=== PATIENT | female | born 1945 | race Caucasian/White ===

== ENCOUNTER 2017-06-01 15:50 | Inpatient (IN) | payer MEDICARE ==
--- NOTE | 2017-06-01 16:51 | RAD ---
CHEST ONE VIEW: 06/01/17 HISTORY: Chest and back pain. COMPARISON: 07/14/16. FINDINGS: The cardiac silhouette and pulmonary vasculature are unremarkable. Mediastinum is midline with aortic calcification. There is no lobar consolidation, or evidence of pneumothorax. IMPRESSION: 1. Atherosclerosis. 2. No active cardiopulmonary abnormalities are otherwise demonstrated. POS: [facility]
[2017-06-01 17:25] LABS: #Basophils 0.1 thou/uL (0.0-0.2); #Eosinphils 0.4 thou/uL (0.0-0.7); #Lymphocytes 1.6 thou/uL (1.20-3.40); #Monocytes 0.7 thou/uL (0.11-0.59); %Basophils 0.5 % (0.0-1.0); %Eosinophils 3.1 % (0.0-10.0); %Lymphocytes 13.5 % (21.0-51.0); %Monocytes 5.9 % (0.0-10.0); %Neutrophils 77.1 % (42.0-75.0); Hemoglobin 14.1 g/dL (12.0-16.0); Mean Corpuscular HGB CONC 32.3 g/dL (32.0-36.0); Mean Corpuscular Hemoglobin 29.9 pg (27.0-31.0); Mean Corpuscular Volume 92.7 fl (81.0-99.0); Mean Platelet Volume 6.2 fL (7.4-10.4); Platelet Count 493 thou/uL (130-400); RBC Distribution Width 12.6 % (11.5-14.5); Red Blood Cell (RBC) Count 4.71 mill/uL (4.20-5.40); White Blood Cell (WBC) Count 11.6 thou/uL (4.8-10.8)
[2017-06-01 17:45] LABS: ALT (SGPT) 14 U/L (8-55); AST (SGOT) 16 U/L (5-34); Albumin 3.5 g/dL (3.4-4.8); Alkaline Phosphatase 83 U/L (40-150); Anion Gap 14 mmol/L (10-20); BUN (Urea Nitrogen) 33 mg/dL (9.8-20.1); Bilirubin, Total 0.4 mg/dL (0.2-1.2); CK (CPK) 23 U/L (29-168); Calc. Creatinine Clearance 0 mL/min (70-130); Calcium 11.1 mg/dL (7.8-10.44); Carbon Dioxide 23 mmol/L (23-31); Chloride 103 mmol/L (98-107); Estimated GFR-MDRD 17; Globulin 3.7 g/dL (2.4-3.5); Glucose 99 mg/dL (83-110); Lipase 55 U/L (8-78); Potassium 3.1 mmol/L (3.5-5.1); Protein, Total 7.2 g/dL (6.0-8.3); Sodium 137 mmol/L (136-145)
[2017-06-01 17:47] LABS: CKMB 1.2 ng/mL (0-6.6); Troponin I 0.021 ng/mL (< 0.028)
[2017-06-01] MEDS ORDERED: Nitroglycerin 0.4 MG TAB (25 Tab Bottle) ONE (17:58)
[2017-06-01] MEDS ORDERED: Nitroglycerin 2% Ointment 1 INCH/1 GM Packet ONE (18:14)
[2017-06-01] MEDS ORDERED: Ondansetron ODT 4 MG TAB SL PRN (20:09)
[2017-06-01] MEDS ORDERED: Ondansetron HCl/PF 4 MG/2 ML Vial IVP PRN (20:09)
[2017-06-01] MEDS ORDERED: Acetaminophen 325 MG TAB PO PRN (20:09)
[2017-06-01] MEDS ORDERED: Sodium Chloride 0.9% 1,000 ML IV SCH (20:09)
[2017-06-01 20:47] LABS: Troponin I 0.025 ng/mL (< 0.028)
[2017-06-01] MEDS: Sodium Chloride 0.9% 1,000 ML IV SCH (22:40)
[2017-06-01] MEDS ORDERED: Donepezil HCl 10 MG TAB PO SCH (23:45)
[2017-06-01] MEDS ORDERED: Simvastatin 20 MG TAB PO SCH (23:45)
[2017-06-01] MEDS ORDERED: Sucralfate 1 GM TAB PO SCH (23:45)
[2017-06-01] MEDS ORDERED: Amlodipine 10 MG TAB PO SCH (23:45)
[2017-06-01] MEDS ORDERED: Pancrelipase DR 12000 1 CAP PO SCH (23:45)
[2017-06-01 23:51] LABS: Troponin I 0.023 ng/mL (< 0.028)
--- NOTE | 2017-06-01 23:59 | HP ---
CHIEF COMPLAINT: Chest pain. HISTORY OF PRESENT ILLNESS: She is a 72-year-old woman with a history of hypertension, CAD. She came in because having some chest pain for last few days. She also has some back pain started few days ago and her back pain radiated to the midsternal chest pain. Pain was constant, so because of persistent pain, she decided to come to the ER. She denies any nausea, vomiting , any diarrhea. Her pain is more with activity when she moves, when she sits, when she walks, pain increased in severity and duration. Patient denies any injury. PAST MEDICAL HISTORY: History of coronary artery disease, stent, type 1; hyperlipidemia; hypertension. PAST SURGICAL HISTORY: Cholecystectomy, hysterectomy. SOCIAL HISTORY: Former tobacco user, smokes cigarette quit more than 10 years ago. Denies alcohol and drug use. Lives with her spouse. REVIEW OF SYSTEMS: She denies any chills, any fever. Eyes: Denies any eye discharge, vision changes. ENT: Denies any rhinorrhea or sore throat. Cardiovascular: She does have chest pain, left side radiated to the back and the front and no dyspnea on exertion. No syncopal episode, no palpitations. Respiratory: She does some short of breath. No cough. No wheezing. Gastrointestinal: No nausea, no diarrhea, no vomiting, no abdominal pain, no melena. Musculoskeletal: She does have some back pain. Skin: No rash. Neurologic: She denies any passing out any headache, any change in mental status. FAMILY HISTORY: Noncontributory. PHYSICAL EXAMINATION: GENERAL: Elderly woman lying in the bed, not in distress. HEENT: Atraumatic, normocephalic. Pupils are round and reactive. Extraocular muscle movements are intact. Ear, nose, throat normal. Tongue mucosa moist. NECK: Supple. LUNGS: Chest is normal risk of breathing, no added sound. She has mild chest wall tenderness in the mid chest. CV: S1, S2 audible. No S3, S4. ABDOMEN: Soft. No organomegaly. EXTREMITIES: No pedal edema. LABORATORY DATA: Chest x-ray shows no active pulmonary disease. Troponin 0.021. Lipase 55. Sodium 137, potassium 3.1, chloride 103, carbon dioxide 23, anion gap 14, BUN 33, creatinine 0.77, calcium 11.1. Bilirubin 0.4, protein 7.2 , albumin 3.5. Hemoglobin 14.5, WBC 11.6, platelets 493, neutrophils 6.2, MCV 92. ASSESSMENT AND PLAN: 1. Chest pain, rule out myocardial infarction. 2. Acute kidney injury secondary to hypovolemia. 3. Hypercalcemia. PLAN: 1. Chest pain with history of risk factor, we continue serial troponin, EKGs, and echocardiogram. 2. Acute kidney injury with hypovolemia with continued IV fluid, normal saline 125 mL hour and follow BMP in the morning. 3. Hypercalcemia secondary to the hypovolemia. IV fluid and monitor. Rule out underlying malignancy . 4 DVT Prophylaxis Heparin MTDD
[2017-06-02] MEDS: Acetaminophen 325 MG TAB PO PRN ×3 (00:12→15:16)
[2017-06-02] MEDS ORDERED: Nitroglycerin 2% Ointment 1 INCH/1 GM Packet TOP SCH (02:00)
[2017-06-02 03:18] VITALS: BMI 29.5
[2017-06-02] MEDS: Sodium Chloride 0.9% 1,000 ML IV SCH ×3 (05:10→13:37)
[2017-06-02] MEDS: Levothyroxine Sodium 125 MCG TAB PO SCH (05:10)
[2017-06-02 05:25] LABS: Anion Gap 12 mmol/L (10-20); BUN (Urea Nitrogen) 28 mg/dL (9.8-20.1); Calc. Creatinine Clearance 25 mL/min (70-130); Calcium 10.2 mg/dL (7.8-10.44); Carbon Dioxide 22 mmol/L (23-31); Chloride 109 mmol/L (98-107); Estimated GFR-MDRD 20; Glucose 79 mg/dL (83-110); Sodium 140 mmol/L (136-145)
[2017-06-02 05:28] LABS: Potassium 2.9 mmol/L (3.5-5.1)
[2017-06-02] MEDS ORDERED: Potassium Chloride 20 MEQ TAB PO SCH (06:00)
[2017-06-02] MEDS: Pancrelipase DR 12000 1 CAP PO SCH ×4 (08:46→20:47)
[2017-06-02] MEDS: Potassium Chloride 20 MEQ TAB PO SCH ×2 (08:47→20:48)
[2017-06-02] MEDS: Sucralfate 1 GM TAB PO SCH ×4 (08:47→20:48)
[2017-06-02] MEDS ORDERED: Potassium Chloride 40 MEQ in Sodium Chloride 0.9% 500 ML IVPB SCH (10:00)
--- NOTE | 2017-06-02 10:21 | ULT ---
RENAL ULTRASOUND: Indication: History of renal failure. FINDINGS: There is moderate to prominent right sided hydronephrosis. There is mild right renal cortical thinnin g measuring up to 1.4 cm. Tiny bilateral ureteral jets are demonstrated at the level of the bladder. There is a small suspected bladder stone seen within the posterior aspect of the bladder. No left sided hydronephrosis is evident. The left renal cortical thickness is 1.6 cm. The right kidney measures 11.8 x 7.9 x 7.2 cm. The left kidney measures 10.6 x 5.9 x 5.2 cm. The pre void bladder volume was 53.8 cc. IMPRESSION: 1. Moderate to prominent right sided hydronephrosis. CT of the abdomen and pelvis without contrast ma y be helpful for further evaluation as to the cause of this obstructive physiology within the right r enal collecting system. 2. Suspected bladder stone within the bladder. POS: [facility]
--- NOTE | 2017-06-02 12:31 | PDOC.PN ---
- Subjective Encounter Start Date: 06/02/17 Encounter Start Time: 12:30 Subjective: Pt admitted with SARAH, Hypokalemia, Hypercalcemia -: Pt c/o generalized weakness, Adequate urine output - Objective Vital Signs & Weight: Vital Signs (12 hours) Temp Pulse Resp BP BP Pulse Ox 06/02/17 11:29 97.4 F L 66 16 164/74 H 96 06/02/17 07:50 97.6 F 62 18 06/02/17 07:22 97.2 F L 64 16 141/66 H 95 06/02/17 04:31 97.6 F 62 18 06/02/17 03:08 97.6 F 62 18 142/74 H 95 Weight Weight 166 lb 8 oz I&O: 06/01/17 06/02/17 06/03/17 06:59 06:59 06:59 Intake Total 1158 240 Balance 1158 240 Result Diagrams: 06/01/17 17:13 06/02/17 04:30 Phys Exam - Physical Examination Neck: no nodes, no JVD, supple, full ROM Respiratory: no wheezing, no rales, no rhonchi, wheezing present, clear to auscultation bilateral Cardiovascular: RRR, no significant murmur, no rub, gallop, irregular Gastrointestinal: soft, non-tender, no distention, positive bowel sounds Musculoskeletal: no edema, pulses present Tenderness upper back, Thoracic area Neurological: non-focal, normal sensation, moves all 4 limbs Lymphatic: no nodes Psychiatric: normal affect, A&O x 3 Skin: no rash, normal turgor, cap refill <2 seconds Dx/Plan (1) SARAH (acute kidney injury) Code(s): N17.9 - ACUTE KIDNEY FAILURE, UNSPECIFIED Status: Acute (2) Hypokalemia Code(s): E87.6 - HYPOKALEMIA Status: Acute (3) Hypercalcemia Code(s): E83.52 - HYPERCALCEMIA Status: Acute - Plan PT/OT 1) Continue IV Fluid -: 2 SARAH sec to Hypovolemia, Avoid Nephrotoxic agent, Renal USG and Nephrology -: 3) Hypokalemia, will replace * . Review of Systems - Review of Systems Constitutional: negative: fever, chills, sweats, weakness, malaise, other Eyes: negative: Pain, Vision Change, Conjunctivae Inflammation, Eyelid Inflammation, Redness, Other ENT: negative: Ear Pain, Ear Discharge, Nose Pain, Nose Discharge, Nose Congestion, Mouth Pain, Mouth Swelling, Throat Pain, Throat Swelling, Other Respiratory: negative: Cough, Dry, Shortness of Breath, Hemoptysis, SOB with Excertion, Pleuritic Pain, Sputum, Wheezing Cardiovascular: negative: chest pain, palpitations, orthopnea, paroxysmal nocturnal dyspnea, edema, light headedness, other Gastrointestinal: Nausea. negative: Vomiting, Abdominal Pain, Diarrhea, Constipation, Melena, Hematochezia, Other Musculoskeletal: Back Pain Neurological: Weakness. negative: Numbness, Incoordination, Change in Speech, Confusion, Seizures, Other - Medications/Allergies Allergies/Adverse Reactions: Allergies Allergy/AdvReac Type Severity Reaction Status Date / Time No Known Drug Allergies Allergy Verified 07/14/16 15:44 Medications: Current Medications Acetaminophen (Tylenol) 650 mg PO Q4H PRN PRN Reason: Headache/Fever or Pain Last Admin: 06/02/17 05:41 Dose: 650 mg Alprazolam (Xanax) 0.25 mg PO BIDPRN PRN PRN Reason: Anxiety Amlodipine Besylate (Norvasc) 10 mg PO HS AGUSTÍN Lipase/Protease/Amylase ([place] [id number]) 2 cap PO QID-WM [facility] Last Admin: 06/02/17 12:22 Dose: 2 cap Donepezil HCl (Aricept) 10 mg PO HS AGUSTÍN Sodium Chloride (Normal Saline 0.9%) 1,000 mls @ 150 mls/hr IV .Q6H40M [facility] Last Admin: 06/02/17 05:10 Dose: 1,000 mls Levothyroxine Sodium (Synthroid) 125 mcg PO 0600 [facility] Last Admin: 06/02/17 05:10 Dose: 125 mcg Memantine (Namenda) 10 mg PO BID [facility] Last Admin: 06/02/17 08:47 Dose: 10 mg Pantoprazole Sodium (Protonix) 40 mg PO HS AGUSTÍN Potassium Chloride (K-Dur) 40 meq PO BID [facility] Last Admin: 06/02/17 08:47 Dose: 40 meq Sertraline HCl (Zoloft) 100 mg PO HS AGUSTÍN Simvastatin (Zocor) 20 mg PO HS [facility] Sodium Chloride (Flush - Normal Saline) 10 ml IVF Q12HR [facility] Last Admin: 06/02/17 08:47 Dose: Not Given Sodium Chloride (Flush - Normal Saline) 10 ml IVF PRN PRN PRN Reason: Saline Flush Sucralfate (Carafate) 1 gm PO QID-[facility] Last Admin: 06/02/17 12:22 Dose: 1 gm
[2017-06-02 13:43] LABS: Anion Gap 11 mmol/L (10-20); BUN (Urea Nitrogen) 24 mg/dL (9.8-20.1); Calc. Creatinine Clearance 26 mL/min (70-130); Calcium 10.4 mg/dL (7.8-10.44); Carbon Dioxide 23 mmol/L (23-31); Chloride 110 mmol/L (98-107); Estimated GFR-MDRD 21; Glucose 91 mg/dL (83-110); Potassium 3.5 mmol/L (3.5-5.1); Sodium 140 mmol/L (136-145)
[2017-06-02] MEDS ORDERED: Potassium Chloride 10 MEQ TAB PO SCH (17:00)
[2017-06-02 18:48] LABS: Bilirubin Negative (Negative); Blood, Urine Negative (Negative); Clarity CLEAR (Clear); Glucose, Urine (Dipstick) Negative (Negative); Leukocyte Trace (Negative); Nitrite Negative (Negative); Protein, Urine (Dipstick) Trace mg/dL (Neg-Trace); Specific Gravity, Urine 1.014 (1.002-1.036); Urobilinogen 0.2 mg/dL (0.2-1.0); pH, Urine 6.5 (5.0-9.0)
[2017-06-02 18:51] LABS: Bacteria/HPF None Seen HPF (None Seen); Hyaline Casts/LPF 0-3 HYALINE CAST LPF (0-3 Hyaline); RBC/HPF 0-3 HPF (0-3); Squamous Epithelial 0-3 HPF (0-3)
[2017-06-02 18:51] LABS: Troponin I 0.017 ng/mL (< 0.028)
--- NOTE | 2017-06-02 19:05 | CT ---
CT OF ABDOMEN AND PELVIS PERFORMED WITHOUT CONTRAST ENHANCEMENT: 06/02/17 HISTORY: Right flank pain. The lung bases are clear. The liver, spleen, and pancreas regions appear unremarkable. gallbladder appears to have been removed . Right and left adrenal glands are normal. There are bilateral renal calculi. There is moderate right sided hydronephrosis and hydroureter. This was related to several stones. One is located at the pelvi c brim. It measures 7 to 8 mm and then there are two additional calculi which are at the right ureter ovesical junction, both of which measure approximately 6 mm. On the left side, there is some mild left hydronephrosis and hydroureter. Patient appears to have pas sed the stone. There is a poor 5 mm calculus which appears to on the left side of the bladder. It mario ears to have been expelled from the left ureter at this level. There is no significant adenopathy or mass. No pelvic lymphadenopathy seen. There are arthritic carvajal es of the spine. IMPRESSION: Bilateral renal calculi with moderate right sided hydronephrosis and hydroureter related to three ure teral calculi as discussed above. In addition, the patient appears to have expelled a left sided uret eral calculus into the bladder. The findings discussed with Dr. Joel. POS: [facility]
[2017-06-02] MEDS: Simvastatin 20 MG TAB PO SCH (20:48)
[2017-06-02] MEDS: Donepezil HCl 10 MG TAB PO SCH (20:48)
[2017-06-02] MEDS: Amlodipine 10 MG TAB PO SCH (20:48)
[2017-06-03] MEDS: ALPRAZolam 0.25 MG TAB PO PRN (00:19)
[2017-06-03] MEDS: Acetaminophen 325 MG TAB PO PRN ×2 (00:19→12:35)
[2017-06-03] MEDS: Sodium Chloride 0.9% 1,000 ML IV SCH ×4 (00:21→20:05)
--- NOTE | 2017-06-03 00:59 | CON ---
DATE OF CONSULTATION: 06/02/2017 PRIMARY CARE PHYSICIAN: Dr. Yung. REFERRING: Hospitalist. REASON FOR CONSULTATION: Bladder stone. HISTORY OF PRESENT ILLNESS: Ms. Hsu is a 72-year-old pleasant female with history of dementia, coronary artery disease, morbid obesity, chronic diarrhea followed by GI, who presents for evaluation of right back flank tenderness. She states that this pain has been present for the last week. Most of the discomfort is in the mid upper back and right flank region. She denies history of nausea, vomiting, fever. She does have history of chronic diarrhea followed by Dr. 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 She denies prior history of kidney stones. Denies dysuria, gross hematuria, recurrent UTI. Family at bedside, lives with her . The patient states that she has had no issues with voiding. She has been voiding with good adequate amount of urine since her hospital stay. Due to acute renal insufficiency, renal ultrasound was obtained, which demonstrating moderate right hydronephrosis with possible bladder stone. I did review her prior imaging and medical records from our primary rn home care. She does have imaging at [facility] performed on 04/12/2017 due to abdominal pain. This was performed by GI. I did review the CT myself, and I do appreciate likely a right mid ureteral calculi [address] scan with no hydronephrosis. She has multiple right renal calculi with left lower pole renal stone as well. She denies prior surgical evaluation from urologic perspective. 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 Billingsley) in 2000, breast biopsy in 2011, bilateral tubal ligation in 1978, right knee replacement by Dr. Rao in 2013, EGD and bladder biopsy by Dr. Dixon in 12/2013, laparoscopic cholecystectomy in 2003, right hemicolectomy by Dr. Griffin in 07/16/2016 with cardiac clearance in chart by Dr. Billingsley. PAST MEDICAL HISTORY: Hypertension, hypercholesterolemia, coronary artery disease, hypothyroidism, dementia, chronic anxiety, depression, obesity, GERD, menopausal. FAMILY HISTORY: Positive for Alzheimer's, history of COPD, NE. She is G2, P2 with at bedside. SOCIAL HISTORY: History of tobacco abuse, quit in 1999; former smoker. ALLERGIES: No known drug allergies. CURRENT MEDICATIONS: Include Tylenol, amlodipine, Aricept, levothyroxine, memantine, nitroglycerin p.r.n., pancrelipase, Zofran, simvastatin, sucralfate. PHYSICAL EXAMINATION: VITAL SIGNS: Stable, 97.5, 70, 18, 97, 160/76. GENERAL: The patient is in no acute distress, alert and oriented x3. is at bedside, who provides further subjective history as well. HEENT: Unremarkable. LUNGS: Clear. ABDOMEN: Subjective discomfort, at this time is not grossly appreciated. No CVA tenderness appreciated. Abdomen is obese, protuberant. Midline periumbilical incision noted with laparoscopic cholecystectomy incision with no hernia. No suprapubic tenderness. GENITOURINARY: Demonstrates severe atrophic vaginitis, excoriation at the external genitalia noted. There is no significant pelvic prolapse. Urethral meatus is somewhat retracted cephalad due to severe atrophy. EXTREMITIES: No cyanosis, clubbing or edema. PERTINENT LABORATORY AND IMAGING: White count is 11.6, hemoglobin 14, platelets 493. Baseline creatinine is anywhere from 0.8-0.9. Creatinine on 11/2016 is 1.3 near the time of her CT scan with bilateral renal calculi. Current admission with creatinine is 2.7, currently is 2.3, BUN 24, potassium is within normal limits. Troponin minimally elevated to 0.03 per hospitalists unlikely due to cardiac event. Chest x-ray on 06/01/[address] of the abdomen and pelvis with IV and oral contrast in 04/12/2017 at [facility]. No bowel masses appreciated on this CAT scan. Large bilateral nonobstructing renal calculi atherosclerosis. Per my review, the right kidney has multiple stones: Right upper pole 1.4 cm, right mid pole 6 mm, right lower pole 8 mm triangular in shape. Per my review, likely a right proximal ureteral calculi 5 mm at the L3-L4 level, left 8 mm lower pole stone. Renal ultrasound dated 06/02/2017, moderate right hydronephrosis, small stones in the posterior aspect of the bladder. Mild renal cortical thinning. No left hydronephrosis is appreciated. Bilateral ureteral jets present. CT of the abdomen and pelvis on 06/02/2017, I did review this with Dr. Montes. There are multiple right ureteral calculi: Right lower pole 1.3 cm stone at the S2 /3 ureter just below the bifurcation of the iliac, there is a 1.2 cm stone, right distal ureteral stones x2 just proximal to the UVJ 5 mm, 5 mm, respectively. Likely small bladder stone 5 mm in the bladder, left lower pole 1 cm stone. There is mild prominence of the left ureter, likely consistent with recent passage of left ureteral calculi. Hounsfield unit of stone is 521. IMPRESSION AND PLAN: Ms. Hsu is a 72-year-old female with past medical history of: 1. Chronic diarrhea. 2. Status post right hemicolectomy, pathology negative. 3. Morbid obesity. 4. History of dementia. 5. Coronary artery disease status post PTCA in 2000, presents with urologic issues of hydronephrosis secondary to multiple ureteral calculi dimensions as above. There is no urinalysis culture obtained. As such , we will proceed with cystoscopy, retrograde, right ureteral stent. There is a possibility that the patient may require right percutaneous nephrostomy tube if I am unable to proceed with ureteral stent placement. As she has mild prominence of the left ureter likely due to spontaneous passage of the left ureteral calculi, left retrograde pyelogram will be performed as well. The patient informed regarding risks and complications and indications for the procedure. Desires to proceed. Due to her body habitus, straight cath UA and C &S will be obtained by nursing staff. We will initiate Levaquin subsequently. We will double cover oncall to OR as urine culture is not finalized. I informed the patient that she will require multiple surgical interventions for staged ureteroscopy, laser lithotripsy due to multiple urolithiasis. BLANQUITAD
[2017-06-03 04:35] LABS: #Eosinphils 0.4 thou/uL (0.0-0.7); #Lymphocytes 1.8 thou/uL (1.20-3.40); #Monocytes 0.8 thou/uL (0.11-0.59); #Neutrophils 7.4 thou/uL (1.40-6.50); %Basophils 0.4 % (0.0-1.0); %Eosinophils 3.8 % (0.0-10.0); %Lymphocytes 17.2 % (21.0-51.0); %Monocytes 7.7 % (0.0-10.0); %Neutrophils 70.9 % (42.0-75.0); Hemoglobin 12.3 g/dL (12.0-16.0); Mean Corpuscular HGB CONC 32.4 g/dL (32.0-36.0); Mean Corpuscular Volume 92.7 fl (81.0-99.0); Mean Platelet Volume 6.4 fL (7.4-10.4); Platelet Count 381 thou/uL (130-400); RBC Distribution Width 12.6 % (11.5-14.5); Red Blood Cell (RBC) Count 4.09 mill/uL (4.20-5.40); White Blood Cell (WBC) Count 10.4 thou/uL (4.8-10.8)
[2017-06-03 04:38] LABS: INR-International Normal Ratio 1.2; PTT 35.5 SEC (22.9-36.1); Prothrombin Time 15.6 SEC (12.0-14.7)
[2017-06-03 04:41] LABS: Anion Gap 10 mmol/L (10-20); BUN (Urea Nitrogen) 20 mg/dL (9.8-20.1); Calc. Creatinine Clearance 29 mL/min (70-130); Calcium 10.1 mg/dL (7.8-10.44); Carbon Dioxide 20 mmol/L (23-31); Chloride 113 mmol/L (98-107); Estimated GFR-MDRD 23; Glucose 84 mg/dL (83-110); Sodium 139 mmol/L (136-145)
[2017-06-03] MEDS: Levothyroxine Sodium 125 MCG TAB PO SCH (04:42)
--- NOTE | 2017-06-03 04:53 | CON ---
DATE OF CONSULTATION: 06/02/2017 PRIMARY PREPRESS SPECIALIST: Dr. Billingsley. HISTORY OF PRESENT ILLNESS: Ms. Hsu is a 72-year-old woman. She came to the hospital complainin g of chest pain. The chest pain is predominantly across her upper back and it hurts worse when she t wists or turns or lays a certain way. She also has some chest pain in the front part of her chest as well, it is continuous, lasting for hours at a time. The patient has a history of coronary artery disease and had a stent implanted in unknown coronary ar ana by Dr. Billingsley many years ago. The family thinks it is over 5 years ago. The patient also kevin s gallstones and it has been found to have kidney stones and has hydronephrosis. The patient does not smoke or use tobacco products. PAST MEDICAL HISTORY: Coronary artery disease as mentioned above. PAST SURGICAL HISTORY: Indicates she has had a cholecystectomy and hysterectomy. SOCIAL HISTORY: Previous tobacco, quit over 10 years ago. REVIEW OF SYSTEMS: CONSTITUTIONAL: No significant weight gain or loss. VISION: No changes. HEARING: No changes. PULMONARY: No cough or wheezing. GASTROINTESTINAL: No nausea, vomiting or diarrhea. SKIN: No rashes. NEUROLOGIC: No unilateral weakness or numbness. PSYCHIATRIC: No unusual depression or anxiety. She does have back pain. FAMILY HISTORY: Noncontributory. PHYSICAL EXAMINATION: GENERAL: It is a pleasant elderly woman resting comfortably in no distress. VITAL SIGNS: Blood pressure 168/79, pulse 64 regular. HEENT: Eyes: Sclerae nonicteric. Mouth mucous membranes are moist. NECK: Supple, no lymphadenopathy. LUNGS: Clear, no wheezing, rales or rhonchi. CARDIAC: Normal S1, normal S2. There is no murmur, rub or gallop. ABDOMEN: Soft, nontender. EXTREMITIES: No clubbing or cyanosis. No edema. Peripheral pulses are intact. SKIN: Warm and dry. PERTINENT LABORATORY AND X-RAY FINDINGS: Potassium is 3.5, creatinine has gone from 2.42 down to 2.3 1. Estimated GFR is 21. The EKG did not show any acute changes. Troponin levels peak point 0.03. ASSESSMENT: 1. Coronary artery disease with previous stent implantation, unknown vessel many years ago. 2. Kidney stone with hydronephrosis. 3. Stage IV renal failure, probably a lot of it is obstructive, in October of this year, she had normal kidney function. 4. Chest pain, atypical for angina. 5. Slight increased troponin level, probably demand ischemia also had renal insufficiency. PLAN: Stress testing to be done tomorrow unless her large areas of ischemia proceed the surgery, it would be certainly problematic going to go to the r&d lab technician with the renal function like this. In add ition, we would have to certainly delay any type of surgical intervention for quite a while of furthe r stenting was indicated. Hopefully, the patient can proceed expeditiously to the operating room.
--- NOTE | 2017-06-03 06:25 | CON ---
DATE OF CONSULTATION: 06/02/2017 CONSULTING PHYSICIAN: Dr. Mario Israel. REASON FOR CONSULTATION: Acute kidney injury. REASON FOR ADMISSION: Chest pain. HISTORY OF PRESENT ILLNESS: This is a 72-year-old female with a history of hypertension, coronary ar ana disease, hyperlipidemia, came to the hospital with chest pain and was found to have elevated cre atinine. Nephrology is consulted. Patient was also found to have a bladder stone and Urology is rain ng consulted. No fever or chills. Patient is mainly feeling lower chest and upper abdominal pain an d very severe pain, no nausea, vomiting, no dysuria, no gross hematuria reported. PAST MEDICAL HISTORY: Positive for coronary artery disease, hyperlipidemia, hypertension. PAST SURGICAL HISTORY: Cholecystectomy, hysterectomy. HOME MEDICATIONS: Simvastatin, Carafate, sertraline, Protonix, omeprazole, memantine, levothyroxine, donepezil, amlodipine, alprazolam. ALLERGIES: No known drug allergies. SOCIAL HISTORY: Former smoker. No alcohol or illicit drug abuse. FAMILY HISTORY: No history of kidney disease. REVIEW OF SYSTEMS: The following complete review of systems was negative, unless otherwise mentioned in the HPI or below: Constitutional: Weight loss or gain, ability to conduct usual activities. Skin: Rash, itching. Eyes: Double vision, pain. ENT/Mouth: Nose bleeding, neck stiffness, pain, tenderness. Cardiovascular: Palpitations, dyspnea on exertion, orthopnea. Respiratory: Shortness of breath, wheezing, cough, hemoptysis, fever or night sweats. Gastrointestinal: Poor appetite, abdominal pain, heartburn, nausea, vomiting, constipation, or diarr hea. Genitourinary: Urgency, frequency, dysuria, nocturia. Musculoskeletal: Pain, swelling. Neurologic/PSYCHIATRIC: Anxiety, depression. Allergy/Immunologic: Skin rash, bleeding tendency. PHYSICAL EXAMINATION: GENERAL: This is an elderly female in no apparent distress. VITAL SIGNS: Temperature 97, pulse 66, respiratory rate 16, blood pressure 164/74. HEENT: Atraumatic, normocephalic. Oral mucosa is moist. NECK: Supple. CARDIOVASCULAR: S1, S2 heard. Rate and rhythm regular. RESPIRATORY: Clear to auscultation. MUSCULOSKELETAL: 1+ edema. DERMATOLOGIC: No skin rash. NEUROLOGIC: Alert, awake. PSYCHIATRIC: Mood and affect normal. LABORATORY DATA: Hemoglobin is 14.1. Potassium is 3.5, BUN is 24, creatinine is 2.3. Renal ultraso und with moderate prominent right-sided hydronephrosis with a suspected bladder stone within the blad faustino. ASSESSMENT AND PLAN: 1. Acute kidney injury most likely from partial hydronephrosis and possible bladder stone. I agree with Urology evaluation 2. Hypokalemia, replace and monitor. 3. Acidosis, mild. 4. Hypertension, stable. 5. Bladder mass. Follow up with Urology. 6. Continue hydration as tolerated. Follow up with Urology. Thank you for the consultation. Avoid nephrotoxins.
--- NOTE | 2017-06-03 07:51 | PRG ---
DATE OF SERVICE: 06/03/2017 SUBJECTIVE: patient sleeping, resting comfortably, easily arousable, at bedside. She denies chest pain, shortness of breath. PHYSICAL EXAMINATION: VITAL SIGNS: Stable, afebrile this morning. ABDOMEN: Soft, obese, protuberant, no gross CVA tenderness is appreciated. GENITOURINARY: Urine output is approximately 2 liters. PERTINENT LABORATORY DATA: White count 10, hemoglobin 12, platelet 381. INR, PTT is grossly unremarkable. Creatinine is 2.1. Admitting creatinine is 2.7. Troponin this morning is 0.017 within normal limits. Patient's previous cardiac clearance prior to hemicolectomy in chart. reviewed her clinical course with database management system specialist, Dr. Forbes. She has normal LV function on an echocardiogram dated 06/2016. ASSESSMENT AND PLAN: Discussed the patient's clinical indications for ureteral stent due to 3 large obstructing right ureteral stone with acute renal insufficiency. I did obtain verbal clearance from Dr. Forbes to proceed with stent due to high-grade obstructive uropathy and renal insufficiency. She will require formal cardiac clearance for further elective surgical intervention. As she has multiple bilateral urolithiasis, this will require multiple staged intervention given size, location, multiplicity. Patient and informed regarding risks /complications and indications. They desired to proceed with ureteral stent this morning. BIJAL
[2017-06-03] MEDS ORDERED: cefTRIAXone\\ROCEPHIN 2 GM in Sodium Chloride 0.9% 100 ML IVPB ONE (08:00)
[2017-06-03] MEDS ORDERED: Fentanyl 100 MCG/2 ML VIAL ONE ×2 (08:43→10:34)
--- NOTE | 2017-06-03 09:02 | RAD ---
HISTORY: A 72-year-old female for preoperative evaluation. History of bilateral renal calculi. COMPARISON: CT from 06/02/2017. FINDINGS: Multiple bilateral renal calculi. Postop surgical changes involving the bowel and the right lateral abdomen. Two large right distal ureteral calculi, stable from prior CT. IMPRESSION: Stable bilateral renal and two distal right ureteral calculi. POS: [facility]
[2017-06-03] MEDS ORDERED: Iothalamate Meglumine 60% 50 ML VIAL FS ONE (09:09)
[2017-06-03] MEDS ORDERED: cefTRIAXone\\ROCEPHIN 2 GM in Sodium Chloride 0.9% 100 ML IVPB SCH (09:30)
[2017-06-03] MEDS ORDERED: Oxybutynin 5 MG TAB PO PRN (09:58)
--- NOTE | 2017-06-03 10:01 | PRG ---
DATE OF SERVICE: 06/03/2017 SUBJECTIVE: Patient was seen and examined at bedside and overnight events noted. Patient denies any shortness of breath or chest pain or palpitation. No history of nausea or vomiting or diarrhea or f ever or chills or cramps. OBJECTIVE: GENERAL: This is an elderly female in no apparent distress. VITAL SIGNS: Temperature 97.5, pulse 67, respiratory rate 20, blood pressure 169/79. HEENT: Atraumatic, normocephalic. Oral mucosa is moist. NECK: Supple. CARDIOVASCULAR: S1, S2 heard. Rate and rhythm regular. RESPIRATORY: Clear to auscultation. GASTROINTESTINAL: Abdomen is soft. MUSCULOSKELETAL: No tenderness. No edema. DERMATOLOGIC: No skin rash. NEUROLOGIC: Alert and awake and oriented x3. No focal neurologic deficits. Moving all the extremiti es. PSYCHIATRIC: Mood and affect normal. LABORATORY DATA: Potassium is 4.0, BUN is 20, creatinine is 2.1. ASSESSMENT AND PLAN: 1. Acute kidney injury secondary to hydronephrosis, creatinine stable, continue hydration. 2. Hypokalemia, replaced. 3. Acidosis. 4. Hypertension. 5. Bladder mass. Follow with Urology. Creatinine is slightly better with hydration and we will foll ow. Avoid nephrotoxins.
[2017-06-03] MEDS ORDERED: Promethazine HCl 25 MG/ML VIAL SLOW IVP PRN (10:03)
[2017-06-03] MEDS ORDERED: Ondansetron HCl/PF 4 MG/2 ML Vial IVP PRN (10:03)
[2017-06-03] MEDS ORDERED: Promethazine HCl 25 MG/ML VIAL IM PRN (10:03)
--- NOTE | 2017-06-03 11:08 | RAD ---
RETROGRADE PYELOGRAM: HISTORY: Stent placement. FINDINGS: This is a series of fluoro images which show placement of a right ureteral stent. There appear to be two filling defects in the distal right ureter. The ureter is never well-visualized at the level of the pelvic brim, and I am not certain of the status of the third calculus noted on previous CT exami [facility], [place]. Injection into the left collecting system shows no filling defects. IMPRESSION: Placement of right ureteral stent with two filling defects in the distal right ureter. POS: BRIAN
--- NOTE | 2017-06-03 11:09 | OP ---
DATE OF PROCEDURE: 06/03/2017 PREOPERATIVE DIAGNOSES: 1. A 72-year-old female with history of severe right hydronephrosis with multiple right renal ureteral calculi: Right lower pole 1.3 cm, right mid ureteral stone at the level of S2-3 ureter 1.2 cm, right distal ureteral stone just proximal to the UVJ x2, 5 mm, 5 mm respectively. 2. Left lower pole 1 cm stone, rule out left distal ureteral stone versus a passed ureteral stone. POSTOPERATIVE DIAGNOSES: 1. A 72-year-old female with history of severe right hydronephrosis with multiple right renal ureteral calculi: Right lower pole 1.3 cm, right mid ureteral stone at the level of S2-3 ureter 1.2 cm, right distal ureteral stone just proximal to the UVJ x2, 5 mm, 5 mm respectively. 2. Left lower pole 1 cm stone, rule out left distal ureteral stone versus a passed ureteral stone. PROCEDURES: Cystoscopy, bilateral retrograde pyelogram, right 6 x 30 double-J ureteral stent placement, 18 Romanian Trent catheter placement. SURGEON: Jazmin Joel D.O. ANESTHESIA: LMA. COMPLICATIONS: None apparent. DISPOSITION: To the recovery room in stable condition. INTRAOPERATIVE FINDINGS: 1. No evidence of bladder stone. 2. Right distal ureteral stones x2 just proximal to the UVJ as a filling defect consistent with CT. 3. High grade obstructive uropathy due to mid ureteral stone at the level of S2 -3 ureter, tortuous right proximal ureter due to high-grade obstruction; right kidney with pyonephrosis upon stent placement 4. Left retrograde pyelogram negative for obstruction, some prominence noted with mid ureter on filling; however, this demonstrated no evidence of filling defect, no evidence of physiologic obstruction due to prompt excretion of contrast. INDICATIONS FOR PROCEDURE AND HISTORY: Ms. Hsu is a 71-year-old female who was admitted for vague lower back pain, chest pain. The patient has been seen by Cardiology and cleared to proceed with right stent placement due to high- grade obstructive uropathy with renal insufficiency. Risks and complications of the procedure were reviewed with patient and in detail including, but not limited to, bleeding, pain, infection, sepsis, injury to ureter, bladder , CO, CVA, and stroke. They have been fully informed regarding staged intervention given large size of the stone and multiplicity. Preoperative antibiotics were provided. DESCRIPTION OF THE PROCEDURE: After an informed consent is signed, the patient is taken to the operating room, placed in a dorsal lithotomy position with the genital area prepped and draped in the usual surgical sterile fashion. Bilateral SCDs were in place, broad spectrum antibodies were provided preoperatively. A 21-Romanian cystoscope was utilized for cystoscopy. Upon entering the bladder, there was no evidence of stone within the bladder. The UOs were identified in normal anatomical location. We performed a right retrograde pyelogram first demonstrating two filling defects in the intramural ureter consistent with the CT scan. At the level of the mid SI joint, there was a large obstructing stone in which I was unable to opacify contrast above this. I was able to negotiate a 0.35 sensor wire to the level of the mid ureteral stone. An open-ended catheter was passed to the level of the stone. It required manipulation with a 0.35 Glidewire; however, I was able to negotiate this proximally. There was significant J-hooking of the proximal ureter consistent with high-grade obstruction. We passed the open-ended catheter right above the stone, further retrograde pyelogram demonstrated delineation of the proximal ureter. Using an angled Glidewire, we were able to negotiate the wire to the level of the right upper pole. Open-ended catheter was passed to the right upper pole opacifying the collecting system. We then changed the wire to a 0.35 sensor wire. A 6 x 30 double-J ureteral stent with proximal coil with adequate redundancy in the bladder. Upon placement of the stent, she had significant pyonephrosis debris. The left retrograde pyelogram was performed which demonstrated no evidence of filling defect or hydronephrosis. With subsequent distention of the contrast, there was some prominence of the mid ureter; however, this is due to retrograde filling, serial imaging demonstrated prompt excretion of contrast with no evidence of filling defect. As she has significant pyonephrosis, I did place indwelling Trent catheter for strict I's and O's and monitor urine output. If the urine output is relatively clear with no significant clinical compromise, Trent catheter may be removed in the next 24-48 hours. She will continue broad spectrum antibiotic coverage. Pt to undergo formal cardiac clearance as she will require multiple surgical interventions for multiple ureteral/ renal calculi. BIJAL
[2017-06-03] MEDS: Pancrelipase DR 12000 1 CAP PO SCH ×4 (12:34→21:04)
[2017-06-03] MEDS: Sucralfate 1 GM TAB PO SCH ×4 (12:35→21:05)
[2017-06-03] MEDS: Potassium Chloride 20 MEQ TAB PO SCH ×2 (12:36→21:04)
--- NOTE | 2017-06-03 15:21 | PDOC.PN ---
- Subjective Encounter Start Date: 06/03/17 Encounter Start Time: 15:20 Subjective: pt seen and exaamined for Obstructive Uropathy -: S/p Cystoscopy and Ureteric stent - Objective MAR Reviewed: Yes Vital Signs & Weight: Vital Signs (12 hours) Temp Pulse Resp BP Pulse Ox 06/03/17 10:55 97.3 F L 95 18 149/86 H 96 06/03/17 08:12 97.5 F L 67 20 06/03/17 07:35 97.5 F L 67 20 169/79 H 95 Weight Weight 167 lb 9.6 oz I&O: 06/02/17 06/03/17 06/04/17 06:59 06:59 06:59 Intake Total 1158 3242 Output Total 1760 Balance 1158 1482 Result Diagrams: 06/03/17 03:57 06/03/17 03:57 Phys Exam - Physical Examination Neck: no nodes, no JVD, supple, full ROM Respiratory: no wheezing, no rales, no rhonchi, wheezing present, clear to auscultation bilateral Cardiovascular: RRR, no significant murmur, no rub, gallop, irregular Gastrointestinal: soft, non-tender, no distention, positive bowel sounds Musculoskeletal: no edema, pulses present, edema present Neurological: non-focal, normal sensation, moves all 4 limbs Psychiatric: normal affect, A&O x 3 Skin: no rash, normal turgor, cap refill <2 seconds Dx/Plan (1) SARAH (acute kidney injury) Code(s): N17.9 - ACUTE KIDNEY FAILURE, UNSPECIFIED Status: Acute (2) Hypokalemia Code(s): E87.6 - HYPOKALEMIA Status: Acute (3) Hypercalcemia Code(s): E83.52 - HYPERCALCEMIA Status: Acute - Plan DVT proph w/lovenox 1) Obstructive Uropathy s/p stent, Kidney functions are improving -: 2) H/o CAD s/p stent, intermittent CP, Stress test tomorrow AM -: 3) UTI on Levaquin * . Review of Systems - Review of Systems ENT: negative: Ear Pain, Ear Discharge, Nose Pain, Nose Discharge, Nose Congestion, Mouth Pain, Mouth Swelling, Throat Pain, Throat Swelling, Other Respiratory: negative: Cough, Dry, Shortness of Breath, Hemoptysis, SOB with Excertion, Pleuritic Pain, Sputum, Wheezing Genitourinary: Retention - Medications/Allergies Allergies/Adverse Reactions: Allergies Allergy/AdvReac Type Severity Reaction Status Date / Time No Known Drug Allergies Allergy Verified 07/14/16 15:44 Medications: Current Medications Acetaminophen (Tylenol) 650 mg PO Q4H PRN PRN Reason: Headache/Fever or Pain Last Admin: 06/03/17 12:35 Dose: 650 mg Alprazolam (Xanax) 0.25 mg PO BIDPRN PRN PRN Reason: Anxiety Last Admin: 06/03/17 00:19 Dose: 0.25 mg Amlodipine Besylate (Norvasc) 10 mg PO [facility] Last Admin: 06/02/17 20:48 Dose: 10 mg Lipase/Protease/Amylase ([place] [id number]) 2 cap PO QID-[facility] Last Admin: 06/03/17 12:36 Dose: 2 cap Donepezil HCl (Aricept) 10 mg PO [facility] Last Admin: 06/02/17 20:48 Dose: 10 mg Sodium Chloride (Normal Saline 0.9%) 1,000 mls @ 125 mls/hr IV .Q8H [facility] Last Admin: 06/03/17 08:30 Dose: 1,000 mls Levofloxacin 500 mg/ Device 100 mls @ 100 mls/hr IVPB Q24HR [facility] Last Admin: 06/02/17 20:45 Dose: 100 mls Levothyroxine Sodium (Synthroid) 125 mcg PO 0600 [facility] Last Admin: 06/03/17 04:42 Dose: 125 mcg Memantine (Namenda) 10 mg PO BID [facility] Last Admin: 06/03/17 12:35 Dose: 10 mg Oxybutynin Chloride (Ditropan) 5 mg PO Q8H PRN PRN Reason: Bladder Spasms Pantoprazole Sodium (Protonix) 40 mg PO [facility] Last Admin: 06/02/17 20:48 Dose: 40 mg Potassium Chloride (K-Dur) 40 meq PO BID [facility] Last Admin: 06/03/17 12:36 Dose: 40 meq Sertraline HCl (Zoloft) 100 mg PO [facility] Last Admin: 06/02/17 20:48 Dose: 100 mg Simvastatin (Zocor) 20 mg PO [facility] Last Admin: 06/02/17 20:48 Dose: 20 mg Sodium Chloride (Flush - Normal Saline) 10 ml IVF Q12HR [facility] Last Admin: 06/03/17 11:54 Dose: Not Given Sodium Chloride (Flush - Normal Saline) 10 ml IVF PRN PRN PRN Reason: Saline Flush Sodium Chloride (Flush - Normal Saline) 10 ml IVF PRN PRN PRN Reason: Saline Flush Sucralfate (Carafate) 1 gm PO QID-WM [facility] Last Admin: 06/03/17 12:36 Dose: 1 gm
--- NOTE | 2017-06-03 15:29 | PRG ---
DATE OF SERVICE: 06/03/2017 Post op eval: status postop ureteral stent placement. Patient's extended family at bedside. I have explained to the patient and family regarding intraoperative findings of high-grade right ureteral obstruction due to multiple large right ureteral calculi, with subsequent pyonephrosis. Her vital signs remain stable. She is afebrile, with resolution of her right upper back pain. Although her urine cultures preliminary is negative thus far, due to intraoperative findings of pyonephrosis, recommend patient continue Levaquin as an outpatient, VESIcare 5 mg 1 p.o. daily for bladder spasm is advised. She does have followup appointment in chart, 06/13/2017 at 8:00 a.m. She has been informed regarding ureteroscopy, laser lithotripsy scheduled for 06/20/2017. Nuclear stress test has been rescheduled for tomorrow for cardiac clearance to proceed with elective surgery. She verbalizes understanding. Trent catheter may be removed tomorrow morning as it is draining clear yellow urine. DR Fermin will be covering me starting tomorrow . BIJAL
[2017-06-03] MEDS ORDERED: Dexamethasone 20 MG/5 ML VIAL ONE (16:45)
[2017-06-03] MEDS ORDERED: Propofol 200 MG/20 ML VIAL ONE (16:45)
[2017-06-03] MEDS ORDERED: Ondansetron HCl/PF 4 MG/2 ML Vial ONE (16:45)
[2017-06-03] MEDS ORDERED: Lidocaine 1% PF 5 ML VIAL ONE (16:45)
[2017-06-03] MEDS ORDERED: ePHEDrine/0.9% NaCl/PF SYRINGE 50 mg/10 ml ONE (16:45)
[2017-06-03] MEDS ORDERED: PHENYLEPHRINE-NS 100 MCG/ML 10 ML SYRINGE ONE (16:45)
[2017-06-03] MEDS ORDERED: Glycopyrrolate 0.2 MG/ML 5 ML SYRINGE ONE (16:45)
--- NOTE | 2017-06-03 17:01 | EKG ---
Test Reason : Blood Pressure : / mmHG Vent. Rate : 063 BPM Atrial Rate : 063 BPM P-R Int : 190 ms QRS Dur : 088 ms QT Int : 416 ms P-R-T Axes : 058 -55 061 degrees QTc Int : 425 ms Normal sinus rhythm Left axis deviation Nonspecific T wave abnormality Abnormal ECG When compared with ECG of 01-JUN-2017 16:36, (Unconfirmed) Criteria for Septal infarct are no longer Present Confirmed by DR. Meg ADAM ([id number]) on 06/03/2017 5:00:51 PM Referred By: RADHA Confirmed By:DR. Meg ADAM
[2017-06-03] MEDS: Amlodipine 10 MG TAB PO SCH (21:03)
[2017-06-03] MEDS: Donepezil HCl 10 MG TAB PO SCH (21:03)
[2017-06-03] MEDS: Simvastatin 20 MG TAB PO SCH (21:04)
[2017-06-04] MEDS: Acetaminophen 325 MG TAB PO PRN ×3 (00:31→19:14)
[2017-06-04] MEDS: Sodium Chloride 0.9% 1,000 ML IV SCH ×2 (03:13→21:02)
[2017-06-04] MEDS: Levothyroxine Sodium 125 MCG TAB PO SCH (05:16)
[2017-06-04 05:29] LABS: #Eosinphils 0.1 thou/uL (0.0-0.7); #Lymphocytes 1.8 thou/uL (1.20-3.40); #Monocytes 0.8 thou/uL (0.11-0.59); #Neutrophils 7.5 thou/uL (1.40-6.50); %Basophils 0.5 % (0.0-1.0); %Eosinophils 0.5 % (0.0-10.0); %Lymphocytes 17.9 % (21.0-51.0); %Monocytes 7.4 % (0.0-10.0); %Neutrophils 73.7 % (42.0-75.0); Hemoglobin 11.9 g/dL (12.0-16.0); Mean Corpuscular HGB CONC 31.6 g/dL (32.0-36.0); Mean Corpuscular Hemoglobin 29.7 pg (27.0-31.0); Mean Corpuscular Volume 94.1 fl (81.0-99.0); Mean Platelet Volume 6.4 fL (7.4-10.4); Platelet Count 389 thou/uL (130-400); RBC Distribution Width 12.8 % (11.5-14.5); White Blood Cell (WBC) Count 10.2 thou/uL (4.8-10.8)
[2017-06-04 05:33] LABS: Anion Gap 12 mmol/L (10-20); BUN (Urea Nitrogen) 16 mg/dL (9.8-20.1); Calc. Creatinine Clearance 33 mL/min (70-130); Calcium 10.3 mg/dL (7.8-10.44); Carbon Dioxide 17 mmol/L (23-31); Chloride 113 mmol/L (98-107); Estimated GFR-MDRD 27; Glucose 82 mg/dL (83-110); Potassium 4.9 mmol/L (3.5-5.1); Sodium 137 mmol/L (136-145)
--- NOTE | 2017-06-04 08:47 | PDOC.PN ---
- Subjective Encounter Start Date: 06/04/17 Encounter Start Time: 16:00 Subjective: Some REILLY abdominal pain/tenderness since been in the hospital. Happens -: whenever she misses meals and Carafate doses. No other complaints. - Objective MAR Reviewed: Yes Vital Signs & Weight: Vital Signs (12 hours) Temp Pulse Resp BP Pulse Ox 06/04/17 03:20 97.9 F 70 16 167/77 H 94 L 06/04/17 00:31 97.3 F L 75 18 173/78 H 96 Weight Weight 167 lb 9.6 oz I&O: 06/03/17 06/04/17 06/05/17 06:59 06:59 06:59 Intake Total 3242 1310 Output Total 1760 1150 Balance 1482 160 Result Diagrams: 06/04/17 04:22 06/04/17 04:22 Phys Exam - Physical Examination Constitutional: NAD HEENT: moist MMs Respiratory: no wheezing, no rales, no rhonchi Cardiovascular: RRR Gastrointestinal: soft, positive bowel sounds TTP REILLY, no guarding Neurological: non-focal, moves all 4 limbs Psychiatric: normal affect, A&O x 3 Dx/Plan (1) Bilateral nephrolithiasis Code(s): N20.0 - CALCULUS OF KIDNEY Status: Acute Comment: will need surgical intervention (2) Hydronephrosis due to obstruction of ureter Code(s): N13.2 - HYDRONEPHROSIS WITH RENAL AND URETERAL CALCULOUS OBSTRUCTION Status: Acute Comment: s/p right ureteral stent placed (3) Chest pain Code(s): R07.9 - CHEST PAIN, UNSPECIFIED Status: Acute Comment: Stress test today- resting portion tomorrow (4) SARAH (acute kidney injury) Code(s): N17.9 - ACUTE KIDNEY FAILURE, UNSPECIFIED Status: Acute Comment: Creatinine improving (5) UTI (urinary tract infection) Status: Acute Comment: Pyelonephrosis during stent placement, on Levaquin - Plan cont current plan of care, continue antibiotics, PT/OT, DVT proph w/SCDs * . - Discharge Day Encounter end time: 16:30
[2017-06-04] MEDS: Sucralfate 1 GM TAB PO SCH ×4 (09:30→21:05)
[2017-06-04] MEDS: Pancrelipase DR 12000 1 CAP PO SCH ×4 (09:34→21:04)
[2017-06-04] MEDS ORDERED: Ondansetron ODT 4 MG TAB PO PRN (11:42)
[2017-06-04] MEDS ORDERED: Ondansetron HCl/PF 4 MG/2 ML Vial IVP SCH (11:45)
[2017-06-04] MEDS ORDERED: ADENOSINE 60 MG/20 ML VIAL ONE (11:50)
[2017-06-04] MEDS: Potassium Chloride 20 MEQ TAB PO SCH ×2 (13:24→21:04)
--- NOTE | 2017-06-04 18:37 | PRG ---
DATE OF SERVICE: 06/04/2017 SUBJECTIVE: Patient was seen and examined at bedside and overnight events noted. Patient denies any shortness of breath or chest pain or palpitation. No history of nausea or vomiting or diarrhea or f ever or chills or cramps. OBJECTIVE: GENERAL: This is an elderly female in no apparent distress. VITAL SIGNS: Temperature 98, pulse 73, respiratory rate 20, blood pressure 152/73. HEENT: Atraumatic, normocephalic. Oral mucosa is moist. NECK: Supple. CARDIOVASCULAR: S1, S2 heard. Rate and rhythm regular. RESPIRATORY: Clear to auscultation. GASTROINTESTINAL: Abdomen is soft. MUSCULOSKELETAL: No tenderness. No edema. DERMATOLOGIC: No skin rash. NEUROLOGIC: Alert and awake and oriented x3. No focal neurologic deficits. Moving all the extremit ies. PSYCHIATRIC: Mood and affect normal. LABORATORY DATA: Potassium is 4.9, BUN 16, creatinine was 1.8. ASSESSMENT AND PLAN: 1. Acute kidney injury secondary to hydronephrosis. Creatinine continues to get better. Continue h ydration maybe 1 more day. 2. Hypokalemia, replace and monitor. 3. Acidosis, stable. 4. Hypertension, stable. 5. Bladder stone not seen on cystoscopy, status post stents and stone removal. Overall, renal function continues to get better. Avoid nephrotoxins. Hydration as tolerated. We wi ll follow.
[2017-06-04] MEDS: Donepezil HCl 10 MG TAB PO SCH (21:03)
[2017-06-04] MEDS: Amlodipine 10 MG TAB PO SCH (21:03)
[2017-06-04] MEDS: Simvastatin 20 MG TAB PO SCH (21:04)
[2017-06-04] MEDS: ALPRAZolam 0.25 MG TAB PO PRN (21:05)
--- NOTE | 2017-06-04 22:38 | PRG ---
DATE OF SERVICE: 06/04/2017 SUBJECTIVE: Ms. Hsu is feeling fine. No complaints. No chest pain or pressure. OBJECTIVE: VITAL SIGNS: Blood pressure is 180/80, pulse 70. LUNGS: Clear. CARDIAC: Normal S1, S2. ABDOMEN: Soft, nontender. EXTREMITIES: There is no edema. LABORATORY: Creatinine has improved down to 1.8. ASSESSMENT: 1. Kidney stone, status post placement of stent with improved renal function. 2. Kidney stones, will need surgery in the future. 3. Previous stent implantation at [facility] physicians. PLAN: Resting part of the stress test is pending. The patient will hopefully show no ischemia, need s to get proceed with surgery as planned. Dr. Rosa will see the patient tomorrow.
[2017-06-05] MEDS: Levothyroxine Sodium 125 MCG TAB PO SCH (05:22)
[2017-06-05] MEDS: Sodium Chloride 0.9% 1,000 ML IV SCH (05:22)
--- NOTE | 2017-06-05 07:43 | PDOC.PN ---
- Subjective Encounter Start Date: 06/05/17 Encounter Start Time: 07:41 Subjective: seen and examined with no new complaint - Objective Vital Signs & Weight: Vital Signs (12 hours) Temp Pulse Resp BP Pulse Ox 06/05/17 04:00 97.9 F 60 16 173/80 H 93 L 06/05/17 00:00 97.8 F 66 16 172/80 H 94 L Weight Weight 168 lb 11.2 oz I&O: 06/04/17 06/05/17 06/06/17 06:59 06:59 06:59 Intake Total 1310 1080 Output Total 1150 350 Balance 160 730 Result Diagrams: 06/04/17 04:22 06/04/17 04:22 Phys Exam - Physical Examination Constitutional: NAD HEENT: PERRLA, moist MMs, sclera anicteric, TM's clear Neck: no nodes, no JVD, supple, full ROM Respiratory: no wheezing, no rales, no rhonchi, clear to auscultation bilateral Cardiovascular: RRR, no significant murmur, no rub Gastrointestinal: soft, non-tender, no distention, positive bowel sounds Musculoskeletal: no edema, pulses present Dx/Plan (1) SARAH (acute kidney injury) Code(s): N17.9 - ACUTE KIDNEY FAILURE, UNSPECIFIED Status: Acute Comment: Creatinine improving (2) Bilateral nephrolithiasis Code(s): N20.0 - CALCULUS OF KIDNEY Status: Acute Comment: will need surgical intervention (3) Chest pain Code(s): R07.9 - CHEST PAIN, UNSPECIFIED Status: Acute Comment: Stress test today- resting portion tomorrow (4) Hydronephrosis due to obstruction of ureter Code(s): N13.2 - HYDRONEPHROSIS WITH RENAL AND URETERAL CALCULOUS OBSTRUCTION Status: Acute Comment: s/p right ureteral stent placed (5) Hypokalemia Code(s): E87.6 - HYPOKALEMIA Status: Acute (6) UTI (urinary tract infection) Status: Acute Comment: Pyelonephrosis during stent placement, on Levaquin - Plan plan discussed w/ family, continue antibiotics, social services counselor Awaiting stress test for cardiac clearance -: Urologic intervention planned for the 20 of June -: Consider switching to oral levaquine in anticipation for discharge * .
[2017-06-05] MEDS: Pancrelipase DR 12000 1 CAP PO SCH ×3 (09:30→18:30)
[2017-06-05] MEDS: Sucralfate 1 GM TAB PO SCH ×3 (09:30→18:30)
--- NOTE | 2017-06-05 10:04 | NM ---
CARDIAC SPECT: HISTORY: A 72-year-old female with chest pain. TECHNIQUE: A myocardial perfusion scan was performed using the single-isotope 2-day protocol with 32 mCi Technet ium 99m sestamibi. Pharmacologic stress with adenosine is monitored and interpreted by Dr. Forbes. FINDINGS: Homogeneous tracer distribution is seen in the myocardial segments on stress and rest images without fixed or reversible defects. GATED SPECT LVEF: 71%. WALL MOTION EXAM: Normal. IMPRESSION: Normal myocardial perfusion scan. POS: BRIAN
[2017-06-05] MEDS: Acetaminophen 325 MG TAB PO PRN (10:40)
[2017-06-05] MEDS: Potassium Chloride 20 MEQ TAB PO SCH ×2 (10:54→13:29)
[2017-06-05 11:57] LABS: Anion Gap 12 mmol/L (10-20); BUN (Urea Nitrogen) 17 mg/dL (9.8-20.1); Calc. Creatinine Clearance 36 mL/min (70-130); Calcium 10.5 mg/dL (7.8-10.44); Carbon Dioxide 22 mmol/L (23-31); Chloride 106 mmol/L (98-107); Estimated GFR-MDRD 30; Glucose 125 mg/dL (83-110); Potassium 3.8 mmol/L (3.5-5.1); Sodium 136 mmol/L (136-145)
[2017-06-05 15:42] VITALS: BP 146/71; TEMP 98
--- NOTE | 2017-06-05 17:25 | PDOC.CTH ---
Cardiology Progress Note - Subjective The pt seen and examined. No overnight events. No cardiac complaints. She still has discomfort to upper back with movement. Her stress test showed normal today. - Objective Vital Signs Temp Pulse Pulse Pulse Resp BP BP 06/05/17 15:22 98 F 65 20 06/05/17 12:44 66 71 160/77 H 178/79 H 06/05/17 11:53 98.2 F 66 18 06/05/17 08:00 98.2 F 66 18 BP Pulse Ox Pulse Ox Pulse Ox 06/05/17 15:22 146/71 H 95 06/05/17 12:44 97 94 L 06/05/17 11:53 145/68 H 96 06/05/17 08:00 142/67 H 96 Weight 168 lb 11.2 oz 06/04/17 06/05/17 06/06/17 06:59 06:59 06:59 Intake Total 1310 1080 Output Total 1150 350 Balance 160 730 - Physical Examination General/Neuro: alert & oriented x3 Neck: no JVD present Lungs: CTA Heart: RRR Abdomen: soft Extremities: other: (No edemas) - Telemetry Telemetry Rhythm: SR - Labs Result Diagrams: 06/04/17 04:22 06/05/17 11:29 Troponin/CKMB CK-MB (CK-2) 1.2 ng/mL (0-6.6) 06/01/17 17:13 Troponin I 0.017 ng/mL (< 0.028) 06/02/17 18:19 - Assessment/Plan 1. Chest pain - The pt stated the pain radiates from her back; her stress test showed normal. 2. SARAH - Renal function is improving 3. Bilateral nephrolithiasis - need surgical clearance from Cardiology; her stress test today showed normal 4. UTI- managed by PCP MAR reviewed * From cardiac standpoint, the pt is stable to d/amadeo. (Her stress test today showed normal). The pt will F/u with Dr Forbes's office within 1 month. Review of Systems - Review of Systems Constitutional: reports: no symptoms reported EENTM: reports: no symptoms reported Respiratory: reports: no symptoms reported Cardiac (ROS): reports: no symptoms reported ABD/GI: reports: see HPI : reports: see HPI Musculoskeletal: reports: no symptoms reported Skin: reports: no symptoms reported
--- NOTE | 2017-06-05 18:47 | PRG ---
DATE OF SERVICE: 06/05/2017 SUBJECTIVE: The patient was seen and examined at bedside and overnight events noted. The patient de nies any shortness of breath or chest pain or palpitation. No history of nausea or vomiting or diarr hea or fever or chills or cramps. OBJECTIVE: GENERAL: This is a well-built female in no apparent distress. VITAL SIGNS: Temperature 97, pulse 65, respiratory rate 18, blood pressure 160/77. HEENT: Atraumatic, normocephalic, oral mucosa is moist. NECK: Supple. CARDIOVASCULAR: S1, S2 heard, rate and rhythm regular. RESPIRATORY: Clear to auscultation. GASTROINTESTINAL: Abdomen is soft. MUSCULOSKELETAL: No tenderness, no edema. DERMATOLOGIC: No skin rash. NEUROLOGIC: Alert and awake and oriented X3, no focal neurologic deficits. Moving all the extremiti es. PSYCHIATRIC: Mood and affect normal. LABORATORY DATA: Potassium is 3.8, BUN is 17, creatinine is 1.6. ASSESSMENT AND PLAN: 1. Acute kidney injury. Renal function is stable. 2. Hypokalemia, replace and monitor. 3. Acidosis. 4. Hypertension. 5. Nephrolithiasis. Follow up with Urology.
[2017-06-05] MEDS ORDERED: TROSPIUM 20 MG TABLET PO SCH (21:00)
== END 2017-06-05 18:59 | disposition home or self-care (01) | DRG 690 ==
LOC: ERS 15:50 → 2SW 18:30 → OBSVTOIN 18:30 → 2NO 06-03 17:49
PROVIDERS: ADMIT Family Medicine; ATTEND Family Medicine
PROC: 0T768DZ Dilation of Right Ureter with Intraluminal Device, Via Natural or Artificial Opening Endoscopic (ICD-10-PCS; principal; 2017-06-03)
PROC: BT140ZZ Fluoroscopy of Kidneys, Ureters and Bladder using High Osmolar Contrast (ICD-10-PCS; 2017-06-03)
PROC: 0T9B70Z Drainage of Bladder with Drainage Device, Via Natural or Artificial Opening (ICD-10-PCS; 2017-06-03)
DX: N13.6 Pyonephrosis (principal); N17.9 Acute kidney failure, unspecified; E87.2 Acidosis; I24.8 Other forms of acute ischemic heart disease; E66.01 Morbid (severe) obesity due to excess calories; E83.52 Hypercalcemia; F03.90 Unspecified dementia, unspecified severity, without behavioral disturbance, psychotic disturbance, mood disturbance, and anxiety; N39.0 Urinary tract infection, site not specified; E87.6 Hypokalemia; I10 Essential (primary) hypertension; Z87.891 Personal history of nicotine dependence; I25.10 Atherosclerotic heart disease of native coronary artery without angina pectoris; Z95.5 Presence of coronary angioplasty implant and graft; E78.00 Pure hypercholesterolemia, unspecified; E03.9 Hypothyroidism, unspecified; K52.9 Noninfective gastroenteritis and colitis, unspecified; E86.1 Hypovolemia; R07.9 Chest pain, unspecified
CPT/HCPCS: 36415; 71010; 74000; 74176; 74420; 76770; 78452; 80048; 80053; 81003; 81015; 82550; 82553; 83690; 84484; 85025; 85610; 85730; 87086; 93005; 93010; 93017; 96360; A4216; A9500; C1758; C1769; G8978-GP-CI; G8979-GP-CI; G8980-GP-CI; J0153; J0696; J1100; J1956; J2001; J2405; J2704; J3010; J3480; J7050; Q9961

== ENCOUNTER 2017-06-13 09:24 | Outpatient (CLI) | payer MEDICARE ==
[2017-06-13 11:51] LABS: #Basophils 0.1 thou/uL (0.0-0.2); #Eosinphils 0.2 thou/uL (0.0-0.7); #Monocytes 0.8 thou/uL (0.11-0.59); #Neutrophils 10.1 thou/uL (1.40-6.50); %Basophils 0.6 % (0.0-1.0); %Eosinophils 1.9 % (0.0-10.0); %Lymphocytes 14.8 % (21.0-51.0); %Monocytes 6.1 % (0.0-10.0); %Neutrophils 76.5 % (42.0-75.0); Mean Corpuscular HGB CONC 31.7 g/dL (32.0-36.0); Mean Corpuscular Hemoglobin 29.6 pg (27.0-31.0); Mean Corpuscular Volume 93.3 fl (81.0-99.0); Mean Platelet Volume 7.2 fL (7.4-10.4); Platelet Count 277 thou/uL (130-400); RBC Distribution Width 14.1 % (11.5-14.5); Red Blood Cell (RBC) Count 4.73 mill/uL (4.20-5.40); White Blood Cell (WBC) Count 13.2 thou/uL (4.8-10.8)
[2017-06-13 12:00] LABS: INR-International Normal Ratio 1.1; Prothrombin Time 14.5 SEC (12.0-14.7)
[2017-06-13 12:01] LABS: PTT 35.4 SEC (22.9-36.1)
[2017-06-13 12:32] LABS: Anion Gap 16 mmol/L (10-20); BUN (Urea Nitrogen) 24 mg/dL (9.8-20.1); Calc. Creatinine Clearance 0 mL/min (70-130); Calcium 11.4 mg/dL (7.8-10.44); Carbon Dioxide 27 mmol/L (23-31); Chloride 99 mmol/L (98-107); Estimated GFR-MDRD 33; Glucose 85 mg/dL (83-110); Potassium 3.1 mmol/L (3.5-5.1); Sodium 139 mmol/L (136-145)
--- NOTE | 2017-07-08 16:29 | EKG ---
Test Reason : Blood Pressure : / mmHG Vent. Rate : 062 BPM Atrial Rate : 062 BPM P-R Int : 200 ms QRS Dur : 086 ms QT Int : 432 ms P-R-T Axes : 052 -52 056 degrees QTc Int : 438 ms Normal sinus rhythm Left axis deviation Nonspecific T wave abnormality Poor R wave progression, possible old anterior infarct When compared with ECG of 02-JUN-2017 17:21, No significant change was found Confirmed by DR. Haylie LOPEZ ([id number]) on 07/08/2017 4:29:02 PM Referred By: MARYBETH Confirmed By:DR. Haylie LOPEZ
== END 2017-06-13 09:25 | disposition home or self-care (01) ==
LOC: LABBT 09:24
PROVIDERS: ATTEND Urology
DX: Z01.818 Encounter for other preprocedural examination (principal); N13.2 Hydronephrosis with renal and ureteral calculous obstruction
CPT/HCPCS: 80048; 85025; 85610; 85730; 93005; 93010

== ENCOUNTER 2017-06-20 05:58 | Day surgery (SDC) | payer MEDICARE ==
[2017-06-13 09:50] VITALS: BMI 31.2
[2017-06-20] MEDS ORDERED: Levofloxacin 500 mg/D5W 100 ml Premix Bag ONE (07:16)
[2017-06-20] MEDS ORDERED: cefTRIAXone\\ROCEPHIN 1 GM, Syringe 0.4 ML in Sterile Water 9.6 ML SLOW IVP ONE (07:30)
--- NOTE | 2017-06-20 07:34 | RAD ---
ABDOMEN 1 VIEW: HISTORY: Renal stones. Preop. COMPARISON: 06/03/17. FINDINGS: Visualized bowel gas pattern is nonspecific. Double pigtail stent overlies the course of the right u reter. Radiopaque stones projecting over the inferior pole of the right kidney and adjacent to the d istal stent at the level of the distal ureter are similar in appearance to the prior exam. Small shefali cifications also overlie the left renal shadow. Metallic clips overlie the gallbladder fossa. There are degenerative changes of the hips and lumbar spine. IMPRESSION: 1. Right ureteral stent is in good radiographic position. 2. Bilateral renal calculi. 3. Right ureteral calculi. POS: [facility]
[2017-06-20] MEDS ORDERED: Fentanyl 100 MCG/2 ML VIAL ONE (09:50)
[2017-06-20] MEDS ORDERED: HYDROmorphone 0.5 MG/0.5 ML SYRINGE ONE (09:51)
[2017-06-20] MEDS ORDERED: Iothalamate Meglumine 60% 50 ML VIAL FS ONE (10:07)
[2017-06-20] MEDS ORDERED: Labetalol HCl 100 MG/20 ML VIAL ONE (12:02)
[2017-06-20] MEDS ORDERED: Phenazopyridine HCl 97.5 MG TABLET ONE ×2 (12:07)
--- NOTE | 2017-06-20 12:09 | RAD ---
IVP RETROGRADE: Date: 06/20/17 HISTORY: Right ureteral stent. COMPARISON: Retrograde study dated 06/03/17. FINDINGS: There has been right ureteral stent exchange. Satisfactory position of the stent. Upon injection of the left ureteral system, there are multiple focal areas of mild distal narrowing, although on the delayed exam, there is no significant contrast residua. No filling defect. IMPRESSION: Satisfactory appearance of the right ureteral stent exchange. POS: BRIAN
[2017-06-20] MEDS ORDERED: ePHEDrine/0.9% NaCl/PF SYRINGE 50 mg/10 ml ONE (13:38)
[2017-06-20] MEDS ORDERED: Propofol 200 MG/20 ML VIAL ONE (13:38)
[2017-06-20] MEDS ORDERED: PHENYLEPHRINE-NS 100 MCG/ML 10 ML SYRINGE ONE (13:38)
[2017-06-20] MEDS ORDERED: Glycopyrrolate 0.2 MG/ML 5 ML SYRINGE ONE (13:38)
[2017-06-20] MEDS ORDERED: Ondansetron HCl/PF 4 MG/2 ML Vial ONE (13:38)
[2017-06-20] MEDS ORDERED: Dexamethasone 20 MG/5 ML VIAL ONE (13:38)
[2017-06-20] MEDS ORDERED: Succinylcholine Chloride 20 MG/ML 10 ml SYRINGE FS ONE (13:38)
[2017-06-20] MEDS ORDERED: Lidocaine 1% PF 5 ML VIAL ONE (13:38)
--- NOTE | 2017-06-20 17:15 | OP ---
DATE OF PROCEDURE: 06/20/2017 PREOPERATIVE DIAGNOSES: 1. A 72-year-old female with history of severe right hydroureteronephrosis due to multiple right urolithiasis: Right lower pole 1.3 cm, right mid ureteral stone at the level of S2-3 ureter, 1.2 cm, right distal ureteral stone just proximal to the UVJ x2, 5 mm, 5 mm respectively. 2. Left lower pole 1 cm stone. 3. Hypercalcemia at 11.4. POSTOPERATIVE DIAGNOSES: 1. A 72-year-old female with history of severe right hydroureteronephrosis due to multiple right urolithiasis: Right lower pole 1.3 cm, right mid ureteral stone at the level of S2-3 ureter, 1.2 cm, right distal ureteral stone just proximal to the UVJ x2, 5 mm, 5 mm respectively. 2. Left lower pole 1 cm stone. PROCEDURES PERFORMED: Cystoscopy, bilateral retrograde pyelogram, right 6 x 26 double-J ureteral stent exchange with distal tail in situ, flexible ureteroscopy , pyeloscopy, laser lithotripsy of multiple right ureterolithiasis, laser lithotripsy of right lower pole stone, basket extraction of stone fragments. SURGEON: Jazmin Joel D.O. ANESTHESIA: General. COMPLICATIONS: None apparent. IV FLUIDS: 1200 mL ESTIMATED BLOOD LOSS: Minimal. SPECIMEN: Stone fragments for chemical analysis. INTRAOPERATIVE FINDINGS: 1. Multiple right distal ureteral calculi. 2. Right mid ureteral calculi with mucosal overgrowth. 3. Right mid to lower pole renal lithiasis 4. Left retrograde pyelogram negative for hydronephrosis or excretion delay. INDICATIONS FOR PROCEDURE AND HISTORY: Ms. Hsu is a 72-year-old female with a history of renal insufficiency due to severe right hydroureteronephrosis. CT demonstrates stone moiety as above. She underwent ureteral stent placement, initial stent was somewhat challenging as she has significant J-hooking tortuosity of the proximal ureter consistent with high- grade obstruction. She underwent ureteral stent placement, presents today for definitive stone treatment. I informed the patient/family regarding likely staged intervention given the multiple stone size, location, density. They desired to proceed with treatment as above. Risks and complications including, but not limited to, bleeding, pain, infection, injury to adjacent organs, urosepsis, ureteral renal injury, likely staged procedure was reviewed with patient and family in detail, and they desired to proceed On preoperative KUB, there is a faint calcific density in the left proximal ureter region. Therefore, left retrograde pyelogram will be performed as well. DESCRIPTION OF THE PROCEDURE: After an informed consent is signed, the patient is taken to the operating room, placed in a dorsal lithotomy position with the genital area prepped and draped in the usual surgical sterile fashion. Broad- spectrum antibiotics and bilateral VIKKI hose, SCDs were placed. A 21-Nauruan cystoscope was utilized for cystoscopy, which demonstrated the right ureteral stent in good position. There was redundancy in the distal coil of the initial stent that was 6 x 30 due to significant hydroureteronephrosis. There was no stone nidus in the bladder. A left retrograde pyelogram was performed, which demonstrated no evidence of hydronephrosis or delayed excretion. Then, I moved to the right side and a ureteral stent was removed to the level of the meatus and a 0.35 sensor wire was placed through the stent into the right upper to mid pole. At this time, with the wire secured, we passed a rigid ureteroscope. The stones were easily found in the distal ureter just proximal to the intramural portion. Using 365 micron laser fiber, I laser lithotripsied the stone into multiple tiny pieces. The stone was soft and fragmented easily. The stone nidus was extracted with basket extraction. We then subsequently moved to the third stone in the mid ureter. This stone was much larger, but portion was embedded with mucosal overgrowth. We were able to render free off the mucosa, and laser lithotripsied into multiple tiny pieces. Some of the fragments that did migrate proximally were extracted with basket extraction. What remained in the ureter were tiny stone dust-like debris. With the mid ureteral stone cleared, we removed the rigid ureteroscope and passed a 10 Nauruan dual-lumen access sheath to the level of the proximal ureter. Retrograde pyelogram was performed demonstrating proper placement. I again demonstrated tortuosity of the proximal ureter consistent with prior history of high-grade obstruction. A second safety wire, a 0.35 Super Stiff was passed. Using an 11, 13 Nauruan x 28 cm navigator, we passed the navigator through the working Super Stiff wire to the level of the proximal ureter. A flexible ureteroscope was able to be advanced without difficulty under direct visualization. The stone was visualized in the mid to lower pole. Using 365 micron laser fiber , we were able to laser the stone into multiple tiny pieces. This was a much larger stone; however, it fragmented easily. At the end of the procedure, what remained were tiny dust-like debris. There was significant amount of stone debris within the collecting system given the large stone nidus. I irrigated the renal pelvis, restaged and we basket extract some of the stone like debris. Most of the stone like debris was so small that they were difficult to basket extract with their dust-like caliber. As I felt that most of the stone debris would be easily passed by the patient, we terminated the procedure. The ureter was surveyed, which demonstrated no evidence of mucosal trauma or further stone nidus warranting treatment. A 6 x 26 double-J ureteral stent was passed with proper placement confirmed. All wire and safety wires were removed. Bladder was completely emptied. Given that she had multiple stones treated, and their size, I will obtain a postoperative CT scan prior to stent pull. My office will arrange a CT stone protocol 06/29/2017, cysto stent pull under local appointment in 06/30/2017 at 8:00 a.m. in my office. She is provided ciprofloxacin for a course of 5 days, AZO p.r.n., [place] prescription 5/325 #50, VESIcare #20, 1 p.o. daily is provided. Pending review of CT, if no significant stone burden warranting further treatment, we will perform cystoscopy right stent pull under local . Will discuss with patient regarding staged intervention of her contralateral left 1 cm stone. As she has intermittent, lab parameters consistent with hypercalcemia, she will undergo full metabolic panel including parathyroid hormone assessment. BIJAL
== END 2017-06-20 13:30 | disposition home or self-care (01) ==
LOC: SDC 05:58
PROVIDERS: ATTEND Urology
PROC: 0T768DZ Dilation of Right Ureter with Intraluminal Device, Via Natural or Artificial Opening Endoscopic (ICD-10-PCS; principal; 2017-06-20)
DX: N13.2 Hydronephrosis with renal and ureteral calculous obstruction (principal); N20.0 Calculus of kidney; E83.52 Hypercalcemia; K21.9 Gastro-esophageal reflux disease without esophagitis; I10 Essential (primary) hypertension; E03.9 Hypothyroidism, unspecified; E66.9 Obesity, unspecified; Z68.31 Body mass index [BMI] 31.0-31.9, adult; E78.00 Pure hypercholesterolemia, unspecified; Z90.49 Acquired absence of other specified parts of digestive tract; Z98.51 Tubal ligation status; Z95.5 Presence of coronary angioplasty implant and graft; Z98.890 Other specified postprocedural states
CPT/HCPCS: 52356; 74018; 74420; 82365; 88300; C1758; C1769; A4216; J0131; J0696; J1170; J1956; J3010; Q9961

== ENCOUNTER 2017-06-29 09:59 | Outpatient (CLI) | payer MEDICARE ==
--- NOTE | 2017-06-29 11:58 | CT ---
EXAM: ABDOMEN CT WITHOUT CONTRAST PELVIC CT WITHOUT CONTRAST: History Previous right ureteral stent with hydronephrosis. The patient is having right flank pain. COMPARISON: 06/02/17. TECHNIQUE: An abdomen and pelvic CT are performed without IV or oral contrast. Coronal reformatted images are s ubmitted for interpretation. FINDINGS: ABDOMEN CT: Chronic changes in the lung bases. Heart is enlarged. No significant pericardial fluid. There are coronary calcifications. 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 Short-segment dissection, chronic in nature, is noted at the distal aorta, just proximal to the bifurcation. Symmetric attenuation of the psoas muscles. Gallbladder is surgically absent. Limited evaluation of the solid organs by the absence of IV contrast. No solid organ abnormality. A drenal glands are unremarkable. No gastrohepatic, retrocrural, or periportal lymphadenopathy. No mesenteric mass, lymphadenopathy, free air, or free fluid. Limited evaluation of the alimentary canal due to lack of oral contrast. Gastric mucosa, duodenum, a nd multiple normal-caliber small bowel loops are noted. Ileocecal junction is normal. Note, there a ppears to be a partial right colectomy. Anastomosis of the colon and small bowel are unremarkable. There is a right ureteral stent with a proximal pigtail in the right renal pelvis. Distal pigtail is in the urinary bladder. There are nonobstructing calcifications in the right renal pelvis. These c alcifications are punctate and measure 1-2 mm. There is a small calcification in the proximal right ureter, measuring 7 mm in the craniocaudal dimension. This calcification measures 4 mm in the anteri or posterior dimension. Additional calcifications are not appreciated. Since the previous exam, the re is moderate hydronephrosis and hydroureter on the left side. There is a new obstructing 6 mm calc ulus in the distal left ureter. Previously noted punctate calcification in the left ureterovesicular junction is not evident. PELVIC CT: Uterus and adnexal structures are unremarkable. No pelvic mass, lymphadenopathy, free air, or free f luid. There are no calcifications in the urinary bladder. No lytic or blastic lesions of the osseou s structures. IMPRESSION: 1. Right-sided ureteral stent as above. Calcifications in the right intra- and extrarenal colleting system as detailed above. 2. Interval moderate left-sided obstructive uropathy secondary to a 6 mm calculus in the distal left ureter. POS: BRIAN
== END 2017-06-29 10:00 | disposition home or self-care (01) ==
LOC: CT 09:59
PROVIDERS: ATTEND Urology
DX: N13.2 Hydronephrosis with renal and ureteral calculous obstruction (principal); N28.89 Other specified disorders of kidney and ureter; Z96.0 Presence of urogenital implants
CPT/HCPCS: 74176

== ENCOUNTER 2017-06-30 11:59 | Outpatient (CLI) | payer MEDICARE ==
[2017-06-30 13:33] LABS: Hemoglobin 13.1 g/dL (12.0-16.0); Mean Corpuscular HGB CONC 34.1 g/dL (32.0-36.0); Mean Corpuscular Hemoglobin 31.6 pg (27.0-31.0); Mean Corpuscular Volume 92.7 fl (81.0-99.0); Mean Platelet Volume 7.9 fL (7.4-10.4); Platelet Count 216 thou/uL (130-400); Red Blood Cell (RBC) Count 4.14 mill/uL (4.20-5.40); White Blood Cell (WBC) Count 8.7 thou/uL (4.8-10.8)
[2017-06-30 13:41] LABS: INR-International Normal Ratio 1.1; Prothrombin Time 14.4 SEC (12.0-14.7)
[2017-06-30 13:42] LABS: PTT 32.9 SEC (22.9-36.1)
[2017-06-30 13:55] LABS: Anion Gap 17 mmol/L (10-20); BUN (Urea Nitrogen) 16 mg/dL (9.8-20.1); Calc. Creatinine Clearance 0 mL/min (70-130); Calcium 10.7 mg/dL (7.8-10.44); Carbon Dioxide 25 mmol/L (23-31); Chloride 95 mmol/L (98-107); Estimated GFR-MDRD 39; Glucose 87 mg/dL (83-110); Potassium 3.2 mmol/L (3.5-5.1); Sodium 134 mmol/L (136-145)
== END 2017-06-30 12:00 | disposition home or self-care (01) ==
LOC: LABBT 11:59
PROVIDERS: ATTEND Urology
DX: Z01.812 Encounter for preprocedural laboratory examination (principal)
CPT/HCPCS: 80048; 81001; 85027; 85610; 85730; 87086

== ENCOUNTER 2017-07-06 06:02 | Day surgery (SDC) | payer MEDICARE ==
[2017-06-30 12:06] VITALS: BMI 27.1
[2017-07-06] MEDS ORDERED: Levofloxacin 500 mg/D5W 100 ml Premix Bag ONE (06:15)
[2017-07-06] MEDS ORDERED: Fluconazole In NaCl,Iso-Osm 100 MG in Premix Bag 1 BAG IVPB SCH ×4 (06:30→06:45)
[2017-07-06] MEDS ORDERED: Iothalamate Meglumine 60% 50 ML VIAL FS ONE (06:45)
[2017-07-06] MEDS ORDERED: Fentanyl 100 MCG/2 ML VIAL ONE (07:23)
--- NOTE | 2017-07-06 07:48 | RAD ---
KUB: Date: 07-06-17 Comparison: 06-20-17 History: Pre-operative patient, renal stone disease. FINDINGS: There is a double J ureteral stent on the left. Clips in the right upper quadrant suggest prior laura cystectomy. No suspicious calcification is seen along the course of the left double J ureteral stent. There is a calcification in the left hemipelvis measuring approximately 5 mm in craniocaudal dimensio n, which could potentially represent a stone within the distal left ureter. There is a sclerotic focu s within the lateral aspect of the left sacral ala. There is a calcification in the mid left abdomen measuring up to 6 mm in craniocaudal dimension at the L4 level which could represent bowel content or a stone within the left ureter as well. Suture lines are seen within the mid right abdomen. IMPRESSION: 1. Right double J ureteral stent in place. 2. Nonspecific calcification in the mid left abdomen to the left of the L4 vertebral body as above. 3. 5 mm calcification in the left hemipelvis, suspicious for a stone within the distal left ureter. POS: BRIAN
[2017-07-06] MEDS ORDERED: Phenazopyridine HCl 97.5 MG TABLET ONE (09:25)
[2017-07-06] MEDS ORDERED: Oxybutynin 5 MG TAB ONE (09:25)
--- NOTE | 2017-07-06 09:36 | RAD ---
RETROGRADE PYELOGRAM: Date: 07-06-17 Comparison: 06-03-17, 06-20-17 History: Renal stone disease. FINDINGS: The initial imaging demonstrates a wire and tubing within the renal collecting system on the right. T he right renal collecting system is partially opacified and appears dilated. The third image demonstr ates placement of a right double J ureteral stent. On image 3, there is contrast medial within the left ureter and left renal pelvis. There is a filling defect within the proximal left ureter suggesting a proximal left ureteral stone. Later images demon strate placement of a left double J ureteral stent. IMPRESSION: Retrograde pyelogram as above. POS: NELLI
--- NOTE | 2017-07-06 11:26 | OP ---
DATE OF PROCEDURE: 07/06/2017 PREOPERATIVE DIAGNOSES: 1. A 72-year-old female with history of multiple right renal lithiasis; right lower pole 1.3 cm, right mid ureteral stone at 2-3, ureter 1.2 cm, right distal UVJ stone x2, 5 mm respectively treated presents with nidus of the right proximal ureter 8 mm right lower pole punctate x2. 2. Left lower pole 8-10 mm stone with distal migration of left hydronephrosis. 3. Hypercalcemia. POSTOPERATIVE DIAGNOSES: 1. A 72-year-old female with history of multiple right renal lithiasis; right lower pole 1.3 cm, right mid ureteral stone at 2-3, ureter 1.2 cm, right distal UVJ stone x2, 5 mm respectively treated presents with nidus of the right proximal ureter 8 mm right lower pole punctate x2. 2. Left lower pole 8-10 mm stone with distal migration of left hydronephrosis. 3. Hypercalcemia. PROCEDURES: Cystoscopy, bilateral retrograde, bilateral 6 x 26 stent placement exchange, bilateral flexible ureteroscopy, pyeloscopy, bilateral laser lithotripsy, basket extraction of stone fragments, and left balloon dilatation of the distal ureter. SURGEON: Jazmin Joel D.O. ANESTHESIA: General. COMPLICATIONS: None. SPECIMEN: None. IV FLUIDS: 1 liter. ESTIMATED BLOOD LOSS: None. SPECIMEN: None. INTRAOPERATIVE FINDINGS: 1. Right stone nidus x3, residual status post ureteroscopy. 2. Left distal ureteral stone with proximal migration. INDICATIONS FOR THE PROCEDURE AND HISTORY: Ms. Hsu is a 72-year-old female with history of renal insufficiency secondary to severe right hydroureteronephrosis. CT demonstrated multiple stone burdens as above. The patient and family were counseled regarding staged procedure given stone nidus, number, density, dimensions. We proceeded to perform right ureteroscopy and most of her stone debris has resolved; however follow up CT demonstrated right proximal 8 mm stone nidus and right lower pole punctate renal lithiasis x2. In addition, her left renal stone had now migrated into the distal ureter of the S2 -3 resulting in left hydronephrosis. She remained asymptomatic and presents today for bilateral laser lithotripsy and stone manipulation. Risks and complications of the procedure was reviewed with her in detail including, but not limited to, bleeding, pain, infection, injury to adjacent organs, urosepsis , ureteral renal injury, possible further surgical intervention was reviewed in detail. All questions were answered to her satisfaction and family and desired to proceed. They have full understanding that the stone treatment will not resolve her chronic epigastric discomfort which has been worked up by GI. DESCRIPTION OF THE PROCEDURE: After an informed consent is signed, the patient is taken to the operating room, placed in a dorsal lithotomy position with the genital area prepped and draped in the usual surgical sterile fashion. Appropriate antibiotic therapy was provided. Bilateral VIKKI hose and SCDs were placed. A 21-Kittitian cystoscope was utilized for cystoscopy. The previously placed right ureteral stent was removed. A 0.35 sensor wire was placed in the right upper pole collecting system. A 10 [place] dual-lumen access sheath was utilized for retrograde pyelography confirming proper placement. There was a subtle filling defect in the proximal ureter. It appeared that the stone did migrate into the right lower pole. A 0.35 Super Stiff working wire was then placed into the right upper pole as a working wire. The safety wire was secured and we passed an 11/13 x 28 cm navigator to the level of the proximal ureter. Flexible ureteroscope was advanced without difficulty. We found the stone in the right lower pole that had migrated from the proximal ureter and we laser lithotripsied the stone into multiple fragments. They were fragmented into dust-like debris; therefore, basket extraction of the stone nidus did not require and I did attempt to basket; there were stone debris, so no specimen was sent. At the end of the maneuver, I did not see any further stone nidus in the collecting system wanting treatment. The fragment stones were pretty much dust-like caliber. The ureter was surveyed and I did not see any further stone nidus. No evidence of ureteral mucosa trauma. A 6 x 26 stent was passed into the right kidney. We then proceeded to study the left side. An open-ended catheter was utilized for retrograde pyelogram and that demonstrated that stone did migrate with retrograde pyelogram to the UPJ region. A 0.35 sensor wire was placed into the left upper pole. At this time, [employer] 12 Kitt[place] 4 cm balloon dilation was performed in the intramural ureter. Subsequently, a 10-Kittitian dual-lumen access sheath was utilized to pass a second working wire, a 0.35 Super Stiff. An 11/13 [place] x 28 cm navigator was then passed to the level of the proximal ureter. The stone did migrate into the lower pole. I laser lithotripsied the stone into tiny fragments. I basket extracted some fragments; however, there were dust-like debris. What remained was dust-like caliber, too small to basket extract. The ureter was surveyed which demonstrated no evidence of ureteral perforation or trauma. A 6 x 26 double-J ureteral stent was passed without difficulty. She tolerated the procedure well. She will follow up with me next for stent pull. As there is endoscopic resolution, no imaging is ordered. She is discharged with a course of Diflucan 50 mg one p.o. daily, AZO, VESIcare 10 mg #10, [place] 5/325, prescription provided. As she does demonstrate intermittent hypercalcemia, after convalescence, we will work her up for full metabolic panel including occult hyperparathyroidism. [facility]
[2017-07-06] MEDS ORDERED: Dexamethasone 20 MG/5 ML VIAL ONE (14:51)
[2017-07-06] MEDS ORDERED: ePHEDrine/0.9% NaCl/PF SYRINGE 50 mg/10 ml ONE (14:51)
[2017-07-06] MEDS ORDERED: Lidocaine 1% PF 5 ML VIAL ONE (14:51)
[2017-07-06] MEDS ORDERED: Ondansetron HCl/PF 4 MG/2 ML Vial ONE (14:51)
[2017-07-06] MEDS ORDERED: Propofol 200 MG/20 ML VIAL ONE (14:51)
[2017-07-06] MEDS ORDERED: Esmolol 100 MG/10 ML VIAL ONE (14:51)
[2017-07-06] MEDS ORDERED: Glycopyrrolate 0.2 MG/ML 5 ML SYRINGE ONE (14:51)
[2017-07-06] MEDS ORDERED: PHENYLEPHRINE-NS 100 MCG/ML 10 ML SYRINGE ONE (14:51)
== END 2017-07-06 13:15 | disposition home or self-care (01) ==
LOC: SDC 06:02
PROVIDERS: ATTEND Urology
PROC: 0TF48ZZ Fragmentation in Left Kidney Pelvis, Via Natural or Artificial Opening Endoscopic (ICD-10-PCS; principal; 2017-07-06)
PROC: 0TF38ZZ Fragmentation in Right Kidney Pelvis, Via Natural or Artificial Opening Endoscopic (ICD-10-PCS; 2017-07-06)
PROC: 0TP98DZ Removal of Intraluminal Device from Ureter, Via Natural or Artificial Opening Endoscopic (ICD-10-PCS; 2017-07-06)
PROC: 0T778DZ Dilation of Left Ureter with Intraluminal Device, Via Natural or Artificial Opening Endoscopic (ICD-10-PCS; 2017-07-06)
PROC: 0T9880Z Drainage of Bilateral Ureters with Drainage Device, Via Natural or Artificial Opening Endoscopic (ICD-10-PCS; 2017-07-06)
DX: N13.2 Hydronephrosis with renal and ureteral calculous obstruction (principal); E83.52 Hypercalcemia; I25.10 Atherosclerotic heart disease of native coronary artery without angina pectoris; I10 Essential (primary) hypertension; E78.5 Hyperlipidemia, unspecified; E03.9 Hypothyroidism, unspecified; F03.90 Unspecified dementia, unspecified severity, without behavioral disturbance, psychotic disturbance, mood disturbance, and anxiety; F41.9 Anxiety disorder, unspecified; F32.9 Major depressive disorder, single episode, unspecified; K21.9 Gastro-esophageal reflux disease without esophagitis; E66.01 Morbid (severe) obesity due to excess calories; Z68.28 Body mass index [BMI] 28.0-28.9, adult; Z98.890 Other specified postprocedural states; Z95.5 Presence of coronary angioplasty implant and graft; Z96.651 Presence of right artificial knee joint; Z90.49 Acquired absence of other specified parts of digestive tract; Z87.891 Personal history of nicotine dependence; Z79.899 Other long term (current) drug therapy; Z87.442 Personal history of urinary calculi
CPT/HCPCS: 74018; 74420; C1758; C1769; J1100; J1450; J1956; J2001; J2405; J2704; J3010; Q9961

== ENCOUNTER 2018-01-16 14:53 | Outpatient (CLI) | payer MEDICARE | END 2018-01-16 14:54 | disposition home or self-care (01) | LOC: BICULT 14:53 | PROVIDERS: ATTEND Urology | DX: N20.0 Calculus of kidney (principal); E83.52 Hypercalcemia | CPT/HCPCS: 76770 ==

== ENCOUNTER 2020-03-02 17:21 | Inpatient (IN) | payer MEDICARE, OTHER ==
[2020-03-02 18:22] LABS: #Lymphocytes 0.9 thou/uL (1.20-3.40); #Monocytes 0.7 thou/uL (0.11-0.59); #Neutrophils 13.7 thou/uL (1.40-6.50); %Basophils 0.1 % (0.0-1.0); %Eosinophils 0.1 % (0.0-10.0); %Lymphocytes 5.7 % (21.0-51.0); %Monocytes 4.7 % (0.0-10.0); %Neutrophils 89.3 % (42.0-75.0); Hemoglobin 11.3 g/dL (12.0-16.0); Mean Corpuscular HGB CONC 31.6 g/dL (32.0-36.0); Mean Corpuscular Hemoglobin 26.1 pg (27.0-31.0); Mean Corpuscular Volume 82.5 fL (78.0-98.0); Mean Platelet Volume 7.6 fL (7.4-10.4); Platelet Count 275 thou/uL (130-400); RBC Distribution Width 14.6 % (11.5-14.5); Red Blood Cell (RBC) Count 4.34 mill/uL (4.20-5.40); White Blood Cell (WBC) Count 15.3 thou/uL (4.8-10.8)
--- NOTE | 2020-03-02 18:24 | RAD ---
RADIOGRAPH CHEST 1 VIEW: DATE: 03/02/2020 HISTORY: 74-year-old female status post acute chest trauma from fall FINDINGS: The thoracic aorta is tortuous and ectatic. There is no evidence of airspace density, pulmonary edema , cardiomegaly, or pneumothorax. The lateral costophrenic angles are not effaced. IMPRESSION: 1) No acute pulmonary findings. 2) ectasia of thoracic aorta.
--- NOTE | 2020-03-02 18:28 | RAD ---
Radiograph pelvis one view: 03/02/2020 6:03 PM HISTORY: 74-year-old female with acute traumatic injury to pelvis from fall FINDINGS: Right intertrochanteric fracture with varus angulation. Diffuse osteopenia. No obvious gross disrupti on of pelvic rings. IMPRESSION: Acute, traumatic, mildly angulated intertrochanteric fracture of right proximal femur.
--- NOTE | 2020-03-02 18:30 | RAD ---
Radiograph right hip 2 view: 03/02/2020 6:03 PM HISTORY: 74-year-old female with acute traumatic right hip pain from fall FINDINGS: Right intertrochanteric fracture with varus angulation. Diffuse osteopenia. No dislocation. IMPRESSION: Acute, traumatic, mildly angulated intertrochanteric fracture of right proximal femur.
[2020-03-02 18:38] LABS: ALT (SGPT) 15 U/L (8-55); AST (SGOT) 18 U/L (5-34); Albumin 4.2 g/dL (3.4-4.8); Alkaline Phosphatase 67 U/L (40-110); Anion Gap 14 mmol/L (10-20); BUN (Urea Nitrogen) 22 mg/dL (9.8-20.1); Bilirubin, Total 0.7 mg/dL (0.2-1.2); CK (CPK) 55 U/L (29-168); Calc. Creatinine Clearance 0 mL/min (70-130); Calcium 10.6 mg/dL (7.8-10.44); Carbon Dioxide 24 mmol/L (23-31); Chloride 106 mmol/L (98-107); Estimated GFR-MDRD 39; Globulin 2.6 g/dL (2.4-3.5); Glucose 128 mg/dL (83-110); Potassium 4.1 mmol/L (3.5-5.1); Protein, Total 6.8 g/dL (6.0-8.3); Sodium 140 mmol/L (136-145)
--- NOTE | 2020-03-02 18:38 | CT ---
CT BRAIN NONCONTRAST: DATE: 03/02/2020 HISTORY: 74-year-old female with dementia status post acute head trauma from fall FINDINGS: There is no evidence of acute intra-axial or extra-axial hemorrhage. There is no midline shift or any other mass effect. There is no extra-axial fluid collection. There is no evidence of obstructive hydrocephalus. Calvarium is intact. There is diffuse brain parenchymal volume loss. There are low att enuation areas in the white matter. These are nonspecific, but in a patient of this age, they are probably chronic ischemic white matter changes due to microvascular atherosclerosis. IMPRESSION: 1) No acute intracranial findings. 2) involutional changes and chronic ischemic white matter changes.
[2020-03-02 19:56] LABS: PTT 26.9 sec (22.9-36.1); Prothrombin Time 13.6 sec (12.0-14.7)
[2020-03-02 19:58] LABS: Phosphorus 2.5 mg/dL (2.3-4.7)
[2020-03-02] MEDS ORDERED: Dextrose 50% Abboject 50 ML SYRINGE SLOW IVP PRN (20:06)
[2020-03-02] MEDS ORDERED: Morphine 2 MG/ML VIAL SLOW IVP PRN (20:06)
[2020-03-02] MEDS ORDERED: Ondansetron PF 4 MG/2 ML Vial IVP PRN (20:06)
[2020-03-02] MEDS ORDERED: Dextrose 5% in Water 1,000 ML IV PRN (20:06)
[2020-03-02] MEDS ORDERED: traMADol HCl 50 MG TAB PO PRN ×4 (20:09→20:56)
[2020-03-02 20:24] LABS: Bilirubin Negative (Negative); Blood, Urine Negative (Negative); Clarity Turbid (Clear); Glucose, Urine (Dipstick) Normal (Negative); Ketone, Urine Negative (Negative); Leukocyte 250 Leu/uL (Negative); Nitrite 2+ (Negative); Protein, Urine (Dipstick) 30 mg/dL (Neg-Trace); RBC/HPF 0-3 HPF (0-3); Specific Gravity, Urine 1.023 (1.002-1.036); Squamous Epithelial 0-3 HPF (0-3); Urobilinogen Normal mg/dL (Less than 2)
[2020-03-02 20:25] LABS: Bacteria/HPF 1+ HPF (None Seen)
[2020-03-02] MEDS ORDERED: Sodium Chloride 0.9% 1,000 ML IV SCH (21:00)
[2020-03-02] MEDS ORDERED: Cipro 250 MG TAB PO SCH (21:00)
[2020-03-02] MEDS ORDERED: Sodium Phosphate 15 MMOL in Sodium Chloride 0.9% 250 ML 250 ML IVPB SCH (22:00)
[2020-03-03] MEDS ORDERED: Senokot S 8.6-50 MG TAB PO SCH (00:15)
[2020-03-03 00:17] VITALS: BMI 25.4
[2020-03-03] MEDS: Cyclobenzaprine 10 MG TAB PO PRN (00:20)
[2020-03-03] MEDS: Acetaminophen 500 MG TAB PO SCH ×5 (00:20→17:27)
[2020-03-03] MEDS ORDERED: Famotidine/PF 20 mg/2ml Vial SLOW IVP SCH ×2 (00:30→21:00)
[2020-03-03] MEDS: Senokot S 8.6-50 MG TAB PO SCH ×3 (00:38→21:44)
--- NOTE | 2020-03-03 01:19 | HP ---
TRAUMA SURGEON: Dr. Jones. CONSULTING PHYSICIAN: Dr. Coughlin. HISTORY OF PRESENT ILLNESS: The patient is a 74-year-old female, presented to the emergency department after a fall at home in the bathroom. The patient's reports he found her in the restroom and she had not been down for very long. States that she has a history of Alzheimer's dementia and she is a very poor historian. He is also not very accurate in his answers for her past medical history. The patient ambulates in the home without a walker or cane. She reports no loss of consciousness and no anticoagulation use. She denies chest pain, shortness of breath, abdominal pain, nausea, vomiting, and diarrhea. No cough. REVIEW OF SYSTEMS: All additional 10-point review of systems negative except as indicated above. PAST MEDICAL HISTORY: Hypertension, CAD, CKD, hyperlipidemia, hypothyroidism, cardiac stents, nephrolithiasis, dementia, anxiety, GERD. PAST SURGICAL HISTORY: Cholecystectomy, hysterectomy, and knee replacement. SOCIAL HISTORY: The patient lives at home with her . She does not use any cane or walker to get around. She was previously a smoker, but had stopped greater than 10 years ago. No alcohol or drug use. MEDICATIONS: Include levothyroxine, amlodipine, donepezil, sertraline, vitamin D, simvastatin, omeprazole, and memantine. ALLERGIES: NO KNOWN DRUG ALLERGIES. PRIMARY CARE PHYSICIAN: Dr. Pittman. PHYSICAL EXAMINATION: VITAL SIGNS: Temperature 97.9, pulse 80, respirations 19, oxygen saturation 96% on room air, blood pressure 162/77. PRIMARY SURVEY: Airway intact. Adequate breath sounds bilaterally. 2+ pulses in the bilateral radials, femorals, and DPs. GCS is 14, -1 for confusion. This is her baseline. No lacerations, bruising, or external bleeding. SECONDARY SURVEY: HEAD: Normocephalic and atraumatic. No gross palpable skull deformities or tenderness. EYES: Pupils 3-2, equal, round, reactive bilaterally. ENT: No signs of trauma. C-SPINE: No step-offs or deformities, nontender. C-collar not in place. CHEST: Nontender. No deformity. C-collar not in place. Equal chest rise and fall. Clear breath sounds bilaterally. ABDOMEN: Soft, nontender, nondistended. PELVIS: Stable to palpation, nontender. No abrasions or ecchymosis. RECTAL: Deferred. GENITOURINARY: Deferred. EXTREMITIES: Right-sided anterior and lateral thigh pain. No abrasions or ecchymosis noted. 2+ pulses in the bilateral radials, femorals, and DPs. BACK/SPINE: No step-offs, deformities, or tenderness to palpation of the thoracic or lumbar spine. No abrasions or ecchymosis noted. NEUROLOGIC: 5/5 strength in bilateral shrink pit supervisor, plantar flexion, dorsiflexion. Gross normal sensation x4 extremities. LABORATORY FINDINGS: White count 15.3, hemoglobin 11.3, hematocrit 35.8, platelets 275. INR 1.0. Sodium 140, potassium 4.1, chloride 106, bicarb 24, BUN 22, creatinine 1.34, glucose 128, phosphorus 2.5, magnesium 2.0. Total bilirubin 0.7, AST 18, ALT 15, alkaline phosphatase 67. UA is positive for bacteria, white cells, leuk esterase, and nitrites. DIAGNOSTIC FINDINGS: CT scan of the brain demonstrates no acute intracranial findings. Involutional changes and chronic ischemic white matter changes. Chest x-ray demonstrates no acute pulmonary findings. Ectasia of thoracic aorta. X-ray of the right hip demonstrates acute traumatic, mildly angulated intertrochanteric fracture of the right proximal femur. Pelvic x-ray demonstrates acute traumatic, mildly angulated intertrochanteric fracture of the right proximal femur. ASSESSMENT: 1. Status post mechanical fall from standing. 2. Right intertrochanteric femur fracture. 3. Urinary tact tract infection, uncomplicated. 4. History of hypertension, coronary artery disease, stents, chronic kidney disease, hyperlipidemia, hypothyroidism, nephrolithiasis, dementia, anxiety, and gastroesophageal reflux disease. PLAN: The patient will be admitted to the Trauma Service. She will have a regular diet and n.p.o. after midnight. She is to receive 1 L of normal saline at 75 an hour. We will renally dose her medications including Cipro for a urinary tract infection, which will be q.24 hours. Repeat blood work in the morning. Dr. Coughlin plans to take the patient to the OR in the morning. Postoperatively, she will work with Physical and Occupational Therapy and likely need placement at acute rehab facility. This patient was discussed with Dr. Jones before this dictation. Job ID: [id number]
[2020-03-03 05:18] LABS: #Basophils 0.1 thou/uL (0.0-0.2); #Lymphocytes 0.9 thou/uL (1.20-3.40); #Monocytes 0.9 thou/uL (0.11-0.59); #Neutrophils 10.5 thou/uL (1.40-6.50); %Basophils 0.4 % (0.0-1.0); %Eosinophils 0.1 % (0.0-10.0); %Lymphocytes 7.5 % (21.0-51.0); %Monocytes 7.2 % (0.0-10.0); %Neutrophils 84.8 % (42.0-75.0); Hemoglobin 10.5 g/dL (12.0-16.0); Mean Corpuscular HGB CONC 31.4 g/dL (32.0-36.0); Mean Corpuscular Hemoglobin 25.8 pg (27.0-31.0); Mean Corpuscular Volume 82.4 fL (78.0-98.0); Mean Platelet Volume 7.7 fL (7.4-10.4); Platelet Count 252 thou/uL (130-400); RBC Distribution Width 14.8 % (11.5-14.5); Red Blood Cell (RBC) Count 4.05 mill/uL (4.20-5.40); White Blood Cell (WBC) Count 12.4 thou/uL (4.8-10.8)
[2020-03-03 05:59] LABS: Anion Gap 14 mmol/L (10-20); BUN (Urea Nitrogen) 18 mg/dL (9.8-20.1); Calc. Creatinine Clearance 46 mL/min (70-130); Calcium 9.9 mg/dL (7.8-10.44); Carbon Dioxide 22 mmol/L (23-31); Chloride 107 mmol/L (98-107); Estimated GFR-MDRD 49; Glucose 122 mg/dL (83-110); Phosphorus 3.8 mg/dL (2.3-4.7); Potassium 3.9 mmol/L (3.5-5.1); Sodium 139 mmol/L (136-145)
[2020-03-03 07:53] LABS: SARS-CoV-2 NAA Rapid Test Not Detected (NotDetected)
[2020-03-03] MEDS: Polyethylene Glycol 3350 17 GM Packet PO SCH (09:17)
[2020-03-03] MEDS ORDERED: CEFAZOLIN 2 GM in Premix Bag 1 BAG IVPB SCH (09:30)
[2020-03-03] MEDS ORDERED: Rocuronium Bromide 10 MG/ML (10ML VIAL) ONE (09:35)
[2020-03-03] MEDS ORDERED: Dexamethasone 20 MG/5 ML VIAL ONE (09:35)
[2020-03-03] MEDS ORDERED: PROPOFOL 200 MG/20 ML VIAL ONE (09:35)
[2020-03-03] MEDS ORDERED: EPHEDRINE 25 MG/5 ML SYRINGE ONE (09:35)
[2020-03-03] MEDS ORDERED: Lidocaine 1% PF 5 ML VIAL ONE (09:35)
[2020-03-03] MEDS ORDERED: PHENYLEPHRINE-NS 100 MCG/ML 10 ML SYRINGE ONE (09:35)
[2020-03-03] MEDS ORDERED: Ondansetron PF 4 MG/2 ML Vial ONE (09:35)
--- NOTE | 2020-03-03 13:28 | PRG ---
DATE OF SERVICE: 03/03/2020 SUBJECTIVE: The patient was seen during morning rounds with Dr. Yoder. The patient had not gotten much sleep as she was admitted overnight. The patient is currently drowsy at this time, but awakens to voice. The patient had no overnight events. The patient denies any significant pain at this time. The patient has been n.p.o. since midnight. Orthopedic Surgery plans to take the patient to the OR later today for repair of her right intertrochanteric femur fracture. The patient is also being treated for a urinary tract infection on admission. OBJECTIVE: VITAL SIGNS: Temperature 98.5, pulse 74, respirations 17, SpO2 of 93% on room air, blood pressure 145/71. GENERAL: Elderly female, resting comfortably, in no acute distress. HEENT: Head is atraumatic and normocephalic. Mucous membranes are moist. RESPIRATORY: Good inspiratory and expiratory effort. Bilateral breath sounds are clear with no wheezing, rales, or rhonchi. CARDIAC: Regular rate, regular rhythm. No murmurs. ABDOMEN: Soft, nontender. EXTREMITIES: Moves all extremities, neurovascularly intact x4. NEUROLOGIC: GCS 14, -1 for confusion which is the patient's baseline as she has a history of dementia. LABORATORY DATA: WBC 12.4, RBC 4.05, hemoglobin 10.5, hematocrit 33.4, platelets 252. Sodium 139, potassium 3.9, BUN 18, creatinine 1.08, estimated GFR 49, glucose 122, calcium 9.9, phosphorus 3.8, magnesium 2.0. Urine culture pending. DIAGNOSTIC STUDIES: There are no new diagnostics to review today. ASSESSMENT: 1. Status post mechanical fall from standing. 2. Right intertrochanteric femur fracture. 3. Urinary tract infection, present on admission. 4. History of hypertension, coronary artery disease, stents, chronic kidney disease, hyperlipidemia, hypothyroidism, nephrolithiasis, dementia, anxiety, and gastroesophageal reflux disease. PLAN: Continue n.p.o. status with medications and sips of water. Continue maintenance IV fluids, normal saline at 75 mL/h. Pain control and supportive care. The patient is going to the OR sometime today for repair of her right intertrochanteric femur fracture. PT and OT to evaluate and treat postop. A post-acute screen has been placed for placement to rehab versus half-way facility. The plan was discussed with the patient and family, who agree. The patient was examined by Dr. Yoder during morning rounds. Job ID: [id number]
--- NOTE | 2020-03-03 14:16 | CON ---
DATE OF CONSULTATION: 03/03/2020 CHIEF COMPLAINT: Right hip pain. HISTORY OF PRESENT ILLNESS: Ms. Hsu is a 74-year-old female who lives with her . She fell in the bathroom yesterday afternoon. She does have dementia. She walks well normally. She does not use a cane or a walker. She has been getting worse recently with her dementia and requiring more care however. She was unable to ambulate. She was taken to the emergency department. X-ray showed a proximal femur fracture. She has been admitted to the hospital. Orthopedics has been consulted for her femur fracture. REVIEW OF SYSTEMS: The patient denies positives on review of systems currently. PAST MEDICAL HISTORY: Hypertension, coronary artery disease, chronic kidney disease, hyperlipidemia, hypothyroidism, nephrolithiasis, Alzheimer's dementia, anxiety, and GERD. PAST SURGICAL HISTORY: Cholecystectomy, hysterectomy, renal stone removal, cardiac stent placement, and knee replacement. SOCIAL HISTORY: The patient again lives independently with her , although she is requiring more and more care. She does not use an assistive device for ambulation. She denies tobacco, alcohol, or drug use. MEDICATIONS: 1. Levothyroxine. 2. Amlodipine. 3. Donepezil. 4. Sertraline. 5. Vitamin D. 6. Simvastatin. 7. Omeprazole. 8. Memantine. ALLERGIES: NO KNOWN DRUG ALLERGIES. IMAGES: X-rays of the right hip and pelvis demonstrate a displaced basicervical femoral neck fracture with varus angulation. PHYSICAL EXAMINATION: VITAL SIGNS: Temperature is 98.5, pulse is 74, respiratory rate 17, oxygen saturations 93%, blood pressure is 145/71. GENERAL: She is alert, lying supine. She does not answer questions appropriately from her dementia. HEENT: Normocephalic and atraumatic. RESPIRATORY: Breathing comfortably. ABDOMEN: Soft, nontender, nondistended. CARDIOVASCULAR: Pulses palpable and regular peripherally. MUSCULOSKELETAL: The patient's right leg has some shortening. Skin is intact. She has pain with hip motion. She is able to flex and extend her feet and ankles bilaterally. Warm and well-perfused feet. IMPRESSION: Right basicervical femoral neck fracture in an elderly female. PLAN: 1. At this point, the patient would benefit from surgical intervention. We will plan for dynamic hip screw fixation of the proximal femur to restore anatomic alignment and promote healing and allow her early mobilization. Goal is to prevent complications of prolonged bedrest. Risks to include wound infection, hardware failure, nonunion, need for further surgery, DVT, PE, or medical complications such as stroke, PR, or even . 2. We will plan to proceed with surgery today. She will have antibiotics on-call to the operating room. Job ID: [id number]
[2020-03-03] MEDS ORDERED: Fentanyl 100 MCG/2 ML VIAL ONE (14:17)
[2020-03-03] MEDS ORDERED: SUGAMMADEX SODIUM 200 MG/2 ML VIAL ONE (15:12)
--- NOTE | 2020-03-03 16:27 | RAD ---
RIGHT FEMUR THREE VIEWS: Indication: History ORIF right femur. Comparison: 03-02-2020 FINDINGS: There has been interval reduction and placement of a sliding hip screw and side plate to transfix the patient's comminuted right intertrochanteric fracture. The instrumentation projects in the expected position. IMPRESSION: ORIF of right hip. POS: BH
[2020-03-03] MEDS ORDERED: Non-Formulary Item 1 EACH (Lipase/Protease/Amylase [Creon Dr 36,000 Units] 1 CAPSULE Caps PO SCH (17:00)
[2020-03-03] MEDS: Pancrelipase DR 12,000 1 CAP PO SCH ×2 (17:27→21:47)
[2020-03-03] MEDS ORDERED: Trospium 20 MG TAB PO SCH (21:00)
[2020-03-03] MEDS: CEFAZOLIN 2 GM in Premix Bag 1 BAG IVPB SCH (21:43)
[2020-03-03] MEDS: Amlodipine 10 MG TAB PO SCH (21:45)
[2020-03-03] MEDS: Cipro 250 MG TAB PO SCH (21:46)
[2020-03-03] MEDS: Donepezil HCl 10 MG TAB PO SCH (21:46)
[2020-03-03] MEDS: Atorvastatin Calcium 10 MG TAB PO SCH (21:46)
--- NOTE | 2020-03-03 22:25 | PRG ---
DATE OF SERVICE: 03/03/2020 SUBJECTIVE: The patient was seen this evening during rounds. She was lying in bed, resting comfortably and asleep with no signs of acute distress. She is postoperative day 0 after fixation of a right intertrochanteric femur fracture. OBJECTIVE: VITAL SIGNS: Temperature 97.3, pulse 47, respirations 16, oxygen saturation 100% on 2 L nasal cannula, blood pressure 159/63. GENERAL: Well-appearing elderly female, lying in bed, resting comfortably and asleep with no signs of acute distress. PULMONARY: Equal chest rise and fall. No signs of acute respiratory distress. ASSESSMENT: 1. Status post mechanical fall from standing. 2. Right intertrochanteric femur fracture, status post repair. 3. Urinary tract infection, uncomplicated. 4. History of hypertension, coronary artery disease, stents, chronic kidney disease, hyperlipidemia, hypothyroidism, nephrolithiasis, dementia, anxiety, and gastroesophageal reflux disease. PLAN: Continue current diet and pain regimen. Start patient's home amlodipine with hold parameters. Continue Cipro for a total of 3 days. Nursing to re-verify med rec as it is not correct. We will redo med rec once it has been verified. Repeat blood work in the morning. Start aspirin if the patient is hemodynamically stable and hemoglobin stable. She is pending discharge to acute rehab facility versus [facility] facility. Job ID: [id number]
[2020-03-04] MEDS: Acetaminophen 500 MG TAB PO SCH ×5 (01:39→23:59)
[2020-03-04] MEDS: CEFAZOLIN 2 GM in Premix Bag 1 BAG IVPB SCH ×3 (03:54→20:59)
[2020-03-04 05:37] LABS: #Lymphocytes 1.3 thou/uL (1.20-3.40); #Monocytes 0.9 thou/uL (0.11-0.59); #Neutrophils 8.3 thou/uL (1.40-6.50); %Basophils 0.4 % (0.0-1.0); %Eosinophils 0.3 % (0.0-10.0); %Lymphocytes 12.6 % (21.0-51.0); %Monocytes 8.7 % (0.0-10.0); %Neutrophils 77.9 % (42.0-75.0); Hemoglobin 9.9 g/dL (12.0-16.0); Mean Corpuscular HGB CONC 30.5 g/dL (32.0-36.0); Mean Corpuscular Hemoglobin 25.6 pg (27.0-31.0); Mean Corpuscular Volume 83.8 fL (78.0-98.0); Platelet Count 211 thou/uL (130-400); RBC Distribution Width 14.6 % (11.5-14.5); Red Blood Cell (RBC) Count 3.89 mill/uL (4.20-5.40); White Blood Cell (WBC) Count 10.6 thou/uL (4.8-10.8)
[2020-03-04] MEDS: Levothyroxine Sodium 125 MCG TAB PO SCH (05:52)
[2020-03-04] MEDS: Cipro 250 MG TAB PO SCH ×2 (05:52→21:00)
[2020-03-04 06:00] LABS: Anion Gap 10 mmol/L (10-20); BUN (Urea Nitrogen) 14 mg/dL (9.8-20.1); Calc. Creatinine Clearance 41 mL/min (70-130); Calcium 9.5 mg/dL (7.8-10.44); Carbon Dioxide 28 mmol/L (23-31); Chloride 107 mmol/L (98-107); Estimated GFR-MDRD 43; Glucose 104 mg/dL (83-110); Magnesium 1.9 mg/dL (1.6-2.6); Phosphorus 2.2 mg/dL (2.3-4.7); Potassium 3.8 mmol/L (3.5-5.1); Sodium 141 mmol/L (136-145)
[2020-03-04] MEDS: Pancrelipase DR 12,000 1 CAP PO SCH ×4 (08:28→21:02)
[2020-03-04] MEDS: Polyethylene Glycol 3350 17 GM Packet PO SCH (08:29)
[2020-03-04] MEDS: Senokot S 8.6-50 MG TAB PO SCH ×2 (08:29→20:58)
[2020-03-04] MEDS: Sucralfate 1 GM TAB PO SCH ×4 (11:28→21:18)
[2020-03-04] MEDS: Amlodipine 10 MG TAB PO SCH (20:59)
[2020-03-04] MEDS: Donepezil HCl 10 MG TAB PO SCH (21:00)
[2020-03-04] MEDS: Atorvastatin Calcium 10 MG TAB PO SCH (21:01)
[2020-03-04] MEDS: Cyclobenzaprine 10 MG TAB PO PRN (21:01)
[2020-03-04] MEDS: K-Phos Neutral 250 MG TAB PO SCH (21:22)
[2020-03-05] MEDS: CEFAZOLIN 2 GM in Premix Bag 1 BAG IVPB SCH ×3 (04:31→19:28)
[2020-03-05] MEDS: Acetaminophen 500 MG TAB PO SCH ×4 (05:28→23:28)
[2020-03-05] MEDS: Cipro 250 MG TAB PO SCH ×2 (05:28→19:30)
[2020-03-05] MEDS: Levothyroxine Sodium 125 MCG TAB PO SCH (05:28)
--- NOTE | 2020-03-05 06:36 | PRG ---
DATE OF SERVICE: 03/04/2020 The patient was seen during morning rounds. SUBJECTIVE: The patient was awake and alert, sitting up in bed comfortably, in no acute distress. She is much more lucid today than she was yesterday. She went to the OR yesterday for repair of her right intertrochanteric femur fracture. Her pain is well controlled, and she had no complaints for us today. OBJECTIVE: VITAL SIGNS: She has been afebrile. Her heart rate has ranged from 69 to 99 in the past 24 hours. Her respiratory rate has been normal, ranging from 16 to 20. Her oxygen saturation has ranged from 90% to 100% on room air. Her blood pressures have been relatively labile ranging from systolic 98 to 159 and diastolic 62 to 96. Her blood sugars have been normal. GENERAL: The patient was awake and alert, sitting up in bed, in no acute distress. HEENT: NC/AT. RESPIRATORY: Equal rise and fall of chest, no respiratory distress. DIAGNOSTIC AND LABORATORY DATA: Her white count is down to normal 10.6 from 12.3 yesterday, but she continued to have an elevated PMN percentage of 78. Her hemoglobin is down to 9.9 from 10.5 yesterday. Her platelets are 211. Sodium 141, potassium 3.8, calcium 9.5, phosphorous 2.2, magnesium 1.9. Urine culture positive for E coli sensitive to ciprofloxacin. ASSESSMENT: 1. Right intertrochanteric femur fracture, status post repair. 2. Urinary tract infection. 3. History of hypertension, coronary artery disease with stents, chronic kidney disease, hyperlipidemia, hypothyroidism, nephrolithiasis, dementia, anxiety, and gastroesophageal reflux disease. PLAN: Several home medications were added yesterday including some for blood pressure, so continue to monitor blood pressure response. Her hemoglobin decreased from yesterday, which is likely secondary to dilution from fluid resuscitation during surgery. Continue to monitor. Continue her antibiotic regimen, especially now that we know the organism causing her UTI is sensitive to what we have currently have her on. We will discontinue her Pepcid today since she is on Protonix, and we will start her home sucralfate. We will replace her electrolytes by adding magnesium sulfate and KPhos. Continue to monitor electrolytes and replace as needed. Case Management is looking into possible placement after discharge. Dr. Yoder saw this patient and agreed with the plan stated above. Job ID: [id number] [facility]ILITY[facility]ahra
[2020-03-05 07:05] LABS: Anion Gap 10 mmol/L (10-20); BUN (Urea Nitrogen) 16 mg/dL (9.8-20.1); Calc. Creatinine Clearance 52 mL/min (70-130); Calcium 9.3 mg/dL (7.8-10.44); Carbon Dioxide 27 mmol/L (23-31); Chloride 103 mmol/L (98-107); Estimated GFR-MDRD 57; Glucose 112 mg/dL (83-110); Magnesium 2.7 mg/dL (1.6-2.6); Phosphorus 1.2 mg/dL (2.3-4.7); Potassium 3.3 mmol/L (3.5-5.1); Sodium 137 mmol/L (136-145)
[2020-03-05] MEDS: Senokot S 8.6-50 MG TAB PO SCH ×2 (09:15→19:30)
[2020-03-05] MEDS: Polyethylene Glycol 3350 17 GM Packet PO SCH (09:15)
[2020-03-05] MEDS: Pancrelipase DR 12,000 1 CAP PO SCH ×4 (09:17→19:31)
[2020-03-05] MEDS: Aspirin 81 mg Enteric Coated Tablet PO SCH ×2 (09:17→19:30)
[2020-03-05] MEDS: Sucralfate 1 GM TAB PO SCH ×4 (09:17→19:31)
[2020-03-05] MEDS: K-Phos Neutral 250 MG TAB PO SCH ×4 (09:17→19:34)
[2020-03-05] MEDS: Cyclobenzaprine 10 MG TAB PO PRN (19:29)
[2020-03-05] MEDS: Donepezil HCl 10 MG TAB PO SCH (19:30)
[2020-03-05] MEDS: Atorvastatin Calcium 10 MG TAB PO SCH (19:30)
[2020-03-05] MEDS: Amlodipine 10 MG TAB PO SCH (19:30)
[2020-03-06] MEDS: Cipro 250 MG TAB PO SCH (05:09)
[2020-03-06] MEDS: Levothyroxine Sodium 125 MCG TAB PO SCH (05:09)
[2020-03-06] MEDS: Acetaminophen 500 MG TAB PO SCH ×2 (05:09→12:29)
[2020-03-06 05:23] LABS: Mean Corpuscular HGB CONC 31.1 g/dL (32.0-36.0); Mean Corpuscular Hemoglobin 25.9 pg (27.0-31.0); Mean Corpuscular Volume 83.3 fL (78.0-98.0); Mean Platelet Volume 7.9 fL (7.4-10.4); Platelet Count 238 thou/uL (130-400); RBC Distribution Width 14.8 % (11.5-14.5); Red Blood Cell (RBC) Count 3.87 mill/uL (4.20-5.40); White Blood Cell (WBC) Count 9.3 thou/uL (4.8-10.8)
--- NOTE | 2020-03-06 05:34 | PRG ---
DATE OF SERVICE: 03/05/2020 This patient was seen during morning rounds. SUBJECTIVE: Ms. Hsu was doing well this morning and was accompanied by a family member. She was not complaining of any pain. She is not oriented to time or location, but was awake and alert this morning. She seems to understand that she will likely be going back to rehab. OBJECTIVE: VITAL SIGNS: She has been afebrile. Her heart rate has been normal, ranging from 69 to 83. Her respiratory rate has been normal, ranging from 16 to 20. Her oxygen saturation has been normal, ranging from 90% to 96% on room air. Her blood pressure has had transient spikes into the 140s and 150s. The majority of the time, her systolic is between 111 and 138. GENERAL: She is alert and awake, sitting up in bed comfortably. She has a stuffed animal by her which she references when you ask her questions. She has a family member at the bedside. HEENT: NC/AT. RESPIRATORY: Equal rise and fall of chest, no respiratory distress. DIAGNOSTIC LABORATORY DATA: BMP today revealed a sodium of 137, potassium of 3.3, phosphorous of 1.2, magnesium of 2.7, calcium of 9.3. Her BUN and creatinine were 16 and 0.96, respectively. ASSESSMENT: 1. Right intertrochanteric femur fracture, status post repair. 2. Urinary tract infection. 3. History of hypertension, coronary artery disease with stents, chronic kidney disease, hyperlipidemia, hypothyroidism, Alzheimer's dementia, nephrolithiasis, anxiety, and gastroesophageal reflux disease. PLAN: Continue current diet, pain, and antibiotic regimen. Her ciprofloxacin regimen will be finished tomorrow. Her Ancef finished today. We replaced her electrolytes today. We will recheck tomorrow and replace as needed. She is ready for discharge with placement pending. Dr. Yoder evaluated this patient and agreed with this plan. Job ID: [id number] [facility]
[2020-03-06 05:44] LABS: Anion Gap 13 mmol/L (10-20); BUN (Urea Nitrogen) 11 mg/dL (9.8-20.1); Calc. Creatinine Clearance 61 mL/min (70-130); Calcium 9.6 mg/dL (7.8-10.44); Carbon Dioxide 26 mmol/L (23-31); Chloride 106 mmol/L (98-107); Estimated GFR-MDRD 68; Glucose 114 mg/dL (83-110); Magnesium 2.2 mg/dL (1.6-2.6); Phosphorus 1.8 mg/dL (2.3-4.7); Potassium 3.5 mmol/L (3.5-5.1); Sodium 141 mmol/L (136-145)
[2020-03-06] MEDS ORDERED: Sodium Phosphate 30 MMOL in Sodium Chloride 0.9% 250 ML 250 ML IVPB SCH (06:15)
[2020-03-06] MEDS ORDERED: Potassium Phosphate 30 MMOL in Sodium Chloride 0.9% 250 ML 250 ML IVPB SCH (06:30)
--- NOTE | 2020-03-06 08:34 | PRG ---
DATE OF SERVICE: 03/06/2020 SUBJECTIVE: Issac is a 74-year-old female postop day #3 from a right dynamic hip screw fixation for a two-part intertrochanteric base neck hip fracture on the right. Clinical panels demonstrate she has not done any walking. . She will go from sit to stand, but requires [id number] assist of two. She arouses and she awakens. OBJECTIVE: VITAL SIGNS: Temperature 97.7, pulse 72, respiratory rate 16, O2 saturation 95% on room air, blood pressure 155/74. GENERAL: She is alert and responsive, but not oriented. She has a history of chronic dementia. EXTREMITIES: Incision is clean. No strikethrough. No erythema. No malrotation or shortening of the right lower extremity. LABORATORY DATA: Hemoglobin and hematocrit 10.0 and 32.2. IMPRESSION: 1. A 74-year-old female postoperative day #3 right hip dynamic hip screw fixation. 2. Chronic dementia, very symptomatic. PLAN: Disposition per Trauma, but suspect she will be skilled facility placement. Continue to follow. Job ID: [id number]
[2020-03-06] MEDS: Sucralfate 1 GM TAB PO SCH ×2 (09:24→12:29)
[2020-03-06] MEDS: Pancrelipase DR 12,000 1 CAP PO SCH ×2 (09:25→12:29)
[2020-03-06] MEDS: Aspirin 81 mg Enteric Coated Tablet PO SCH (09:25)
[2020-03-06] MEDS: Senokot S 8.6-50 MG TAB PO SCH (09:25)
[2020-03-06] MEDS: Polyethylene Glycol 3350 17 GM Packet PO SCH (09:25)
[2020-03-06] MEDS: K-Phos Neutral 250 MG TAB PO SCH (09:25)
[2020-03-06 10:49] VITALS: BP 127/73; TEMP 98.1
[2020-03-06] MEDS ORDERED: Melatonin 3 MG TAB PO PRN (11:30)
--- NOTE | 2020-03-07 02:54 | DIS ---
DATE OF ADMISSION: 03/02/2020 DATE OF DISCHARGE: 03/06/2020 This is Destiny Westfall NP dictating a report for Dr. Yoder. ATTENDING: Dr. Jones. DISCHARGE ATTENDING: Dr. Yoder. CONSULTS: Orthopedic Surgery, Dr. Coughlin. PROCEDURES: Open reduction and internal fixation of right femur by Dr. Coughlin. PRIMARY DIAGNOSES: Mechanical fall from standing, right intertrochanteric femur fracture, urinary tract infection on admission. SECONDARY DIAGNOSES: History of hypertension, coronary artery disease, chronic kidney disease, hyperlipidemia, hypothyroidism, nephrolithiasis, dementia, anxiety, and gastroesophageal reflux disease. DISCHARGE MEDICATIONS: 1. Tramadol 50 mg p.o. q.12 hours p.r.n. pain, #12. 2. The [employer]STA[employer] site was accessed inappropriate. 3. Xanax 0.25 mg p.o. b.i.d. as needed. 4. Amlodipine 10 mg p.o. at bedtime. 5. Aspirin 81 mg p.o. b.i.d. for 30 days for VTE prophylaxis. 6. Cipro 250 mg p.o. x1 dose on 03/06/20 at 8 p.m., this completes the dosing. 7. Flexeril 5 mg p.o. 3 times a day p.r.n. muscle spasms. 8. Donepezil 10 mg p.o. at bedtime. 9. Levothyroxine 125 mcg q.a.m. 10. Diamond COFFEY 36,000 units 2 capsules p.o. q.i.d. with meals. 11. Melatonin 3 mg p.o. at bedtime. 12. Namenda 10 mg p.o. b.i.d. 13. Omeprazole 40 mg p.o. at bedtime. 14. MiraLAX as needed for constipation. 15. Senokot as needed for constipation. 16. Sertraline 100 mg p.o. at bedtime. 17. Simvastatin 20 mg p.o. at bedtime. 18. VESIcare 5 mg p.o. q.a.m. 19. Carafate 1 g p.o. q.i.d. No discontinued medications. HISTORY OF PRESENT ILLNESS AND HOSPITAL COURSE: This is a 74-year-old female, who presented to the emergency room after a fall at home in her bathroom. The patient's found her in the restroom and was not sure how long she had been down. The patient has a history of Alzheimer's dementia. The patient uses a walker or cane to ambulate at home. The patient is not on any anticoagulation use. The patient denied any chest pain, shortness of breath, or dizziness prior to falling. The patient had no recent illnesses. The patient's pain was well controlled pre and postop. The patient remained pleasantly confused during her hospital stay, which was baseline. The patient was treated with Cipro for a urinary tract infection present on admission. Cultures grew back Escherichia coli. This was sensitive to ciprofloxacin. On the day of discharge, the patient was evaluated by Dr. Yoder. The patient's vital signs were stable and her exam was unremarkable including cardiopulmonary and GI exam. The [facility]. DISPOSITION: Stable. DISCHARGE INSTRUCTIONS: Location: [facility]. DIET: Regular diet as tolerated. ACTIVITY: As tolerated, weightbearing as tolerated. FOLLOWUP: Follow up with Dr. Coughlin in 3 to 4 weeks. Call to schedule appointment. No need to follow up with Trauma Services. Nursing staff should clean and inspect incision daily. Remove tony postop day #12 through #14. Job ID: [id number]
[2020-03-07] MEDS ORDERED: Donepezil HCl 10 MG TAB PO SCH (09:00)
--- NOTE | 2020-03-07 14:22 | OP ---
DATE OF PROCEDURE: 03/03/2020 OPERATION PERFORMED: Right basicervical femoral neck fracture open reduction and internal fixation with dynamic hip screw. PREOPERATIVE DIAGNOSIS: Right basicervical femoral neck fracture. POSTOPERATIVE DIAGNOSIS: Right basicervical femoral neck fracture. COMPLICATIONS: None. ESTIMATED BLOOD LOSS: 100 mL. IMPLANTS: Synthes dynamic hip screw and sideplate, 3-hole plate, 135 degrees angle. INDICATIONS: Ms. Hsu is a 74-year-old female who has fallen. She fractured her right hip. She has been indicated for open reduction and internal fixation to restore anatomic alignment and promote healing. Goal is to prevent complications of prolonged bedrest. Risks have been reviewed in detail. She wants to proceed. DESCRIPTION OF PROCEDURE: Ms. Hsu was identified in the preoperative holding area. Her correct extremity was marked. She was carried to the operating room. She was positioned supine. General anesthesia was induced. A multidisciplinary time-out was performed. She was given intravenous antibiotics. At this point, we began the procedure with traction on the limb. We reduced the fracture with longitudinal traction. We took intraoperative x-rays, confirming this. Once we had an anatomic reduction, we proceeded with prepping and draping the right leg. We then made an incision over the lateral thigh. We dissected down through the fascia and cleared the vastus lateralis from the lateral femur. We then placed our 135-degrees angle guide. We placed a guide pin in the centered position of the femoral head. At this point, we proceeded to over-ream the guidewire. We measured an appropriate length. We then placed a lag screw. We checked this with x-ray. At this point, we impacted our sideplate. We placed 3 screws in the plate. We took final images. We thoroughly irrigated and closed appropriately in layers. A sterile dressing was applied. Job ID: [id number]
--- NOTE | 2020-03-12 16:29 | EKG ---
Test Reason : FALL Blood Pressure : / mmHG Vent. Rate : 075 BPM Atrial Rate : 075 BPM P-R Int : 224 ms QRS Dur : 088 ms QT Int : 378 ms P-R-T Axes : 053 -56 079 degrees QTc Int : 422 ms Sinus rhythm with 1st degree A-V block Left axis deviation Abnormal ECG Confirmed by KATT HOLDER DO ([id number]), web editor LETTY NAVARRETE ([id number]) on 03/12/2020 4:28:46 PM Referred By: Confirmed By:KATT HOLDER DO
== END 2020-03-06 13:45 | DRG 481 ==
LOC: ERS 17:21 → SURG B 23:44 → SURG A 03-03 10:38 → SURG B 03-03 10:48
PROVIDERS: ADMIT Surgery; ATTEND Surgery
PROC: 0QS604Z Reposition Right Upper Femur with Internal Fixation Device, Open Approach (ICD-10-PCS; principal; 2020-03-03)
DX: S72.141A Displaced intertrochanteric fracture of right femur, initial encounter for closed fracture (principal); N39.0 Urinary tract infection, site not specified; R71.0 Precipitous drop in hematocrit; K21.9 Gastro-esophageal reflux disease without esophagitis; E78.00 Pure hypercholesterolemia, unspecified; I25.10 Atherosclerotic heart disease of native coronary artery without angina pectoris; G30.9 Alzheimer's disease, unspecified; Z96.651 Presence of right artificial knee joint; W18.30XA Fall on same level, unspecified, initial encounter; Z20.828 Contact with and (suspected) exposure to other viral communicable diseases; F02.80 Dementia in other diseases classified elsewhere, unspecified severity, without behavioral disturbance, psychotic disturbance, mood disturbance, and anxiety; F41.9 Anxiety disorder, unspecified; F32.9 Major depressive disorder, single episode, unspecified; I12.9 Hypertensive chronic kidney disease with stage 1 through stage 4 chronic kidney disease, or unspecified chronic kidney disease; N18.9 Chronic kidney disease, unspecified; Z95.5 Presence of coronary angioplasty implant and graft; Z79.899 Other long term (current) drug therapy; Z87.891 Personal history of nicotine dependence; Z90.49 Acquired absence of other specified parts of digestive tract; Z90.710 Acquired absence of both cervix and uterus
CPT/HCPCS: 36415; 70450; 71045; 72170; 76000; 80048; 80053; 81003; 81015; 82550; 83735; 84100; 85025; 85027; 85610; 85730; 86850; 86900; 86901; 87077; 87086; 87186; 93005; C1713; J0690; J1100; J2405; J2704; J3010; J3475; J3490; J7030; J7050; S0028; U0002

== ENCOUNTER 2023-10-14 12:03 | Emergency (ER) | payer MEDICARE ==
[2023-10-14 12:42] LABS: #Basophils 0.05 10x3/uL (0.0-0.2); %Basophils 0.7 % (0.0-1.0); %Eosinophils 9.4 % (0.0-10.0); %Lymphocytes 24.1 % (21.0-51.0); %Monocytes 6.4 % (0.0-10.0); %Neutrophils 59.3 % (42.0-75.0); Hematocrit 44.7 % (36.0-47.0); Hemoglobin 14.6 g/dL (12.0-16.0); Mean Corpuscular HGB CONC 32.7 g/dL (32.0-36.0); Mean Corpuscular Hemoglobin 30.5 pg (27.0-31.0); Mean Corpuscular Volume 93.5 fL (78.0-98.0); Mean Platelet Volume 9.4 fL (7.4-10.4); Platelet Count 185 10x3/uL (130-400); RBC Distribution Width 14.7 % (11.5-14.5); Red Blood Cell (RBC) Count 4.78 mill/uL (4.20-5.40)
[2023-10-14 13:01] LABS: ALT (SGPT) 31 U/L (8-55); AST (SGOT) 26 U/L (5-34); Albumin 3.2 g/dL (3.4-4.8); Alkaline Phosphatase 72 U/L (40-110); Anion Gap 12 mmol/L (10-20); BUN (Urea Nitrogen) 18 mg/dL (9.8-20.1); Bilirubin, Total 0.5 mg/dL (0.2-1.2); Calc. Creatinine Clearance 0 mL/min (70-130); Carbon Dioxide 25 mmol/L (23-31); Chloride 106 mmol/L (98-107); Estimated GFR 53; Globulin 3.3 g/dL (2.4-3.5); Glucose 92 mg/dL (83-110); Protein, Total 6.5 g/dL (5.8-8.1); Sodium 139 mmol/L (136-145)
[2023-10-14 13:10] LABS: Bilirubin Negative (Negative); Blood, Urine Large (Negative); Glucose, Urine (Dipstick) Negative (Negative); Ketone, Urine Negative (Negative); Leukocyte Large (Negative); Nitrite Negative (Negative); Protein, Urine (Dipstick) 100 mg/dL (Neg-Trace); pH, Urine 7.5 (5.0-9.0)
[2023-10-14 13:17] LABS: Clarity Hazy (Clear)
[2023-10-14 13:23] LABS: Bacteria/HPF 4+ HPF (None Seen); CAUTI Indications for Culture Alt mental st,lethar; RBC/HPF 21-50 HPF (0-3); Squamous Epithelial 0-3 HPF (0-3); WBC/HPF Greater than 50 HPF (0-3)
[2023-10-14 13:25] LABS: Urine Culture Reflex Yes Yes
== END 2023-10-14 16:20 | disposition home or self-care (01) ==
LOC: ERS 12:03
DX: T83.092A Other mechanical complication of nephrostomy catheter, initial encounter (principal); I10 Essential (primary) hypertension; E78.00 Pure hypercholesterolemia, unspecified; I25.10 Atherosclerotic heart disease of native coronary artery without angina pectoris; E03.9 Hypothyroidism, unspecified; Y84.6 Urinary catheterization as the cause of abnormal reaction of the patient, or of later complication, without mention of misadventure at the time of the procedure; Z87.891 Personal history of nicotine dependence; Z79.899 Other long term (current) drug therapy
CPT/HCPCS: 36415; 71045; 74176; 80053; 81001; 83605; 85025; 87040; 87077; 87086; 87186

== ENCOUNTER 2023-11-14 11:31 | Emergency (ER) | payer MEDICARE, MEDICAID ==
[2023-11-14] MEDS ORDERED: Iopamidol 100 ML FS ONE (13:21)
[2023-11-14] MEDS ORDERED: Sodium Chloride 0.9% 500 ML ONE (13:21)
[2023-11-14] MEDS ORDERED: Sodium Bicarbonate 2.5 MEQ/5 ML SDV ONE (13:21)
[2023-11-14] MEDS ORDERED: Midazolam HCl 2 mg/2 ml Vial ONE (13:46)
[2023-11-14] MEDS ORDERED: fentaNYL 50 mcg/mL 1 mL Vial ONE (13:46)
[2023-11-14] MEDS ORDERED: Lidocaine 1% w/Epinephrine 1:100K 20 ML VIAL ONE (13:48)
[2023-11-14] MEDS ORDERED: cefTRIAXone (ROCEPHIN) 2 GM VIAL ONE (15:23)
[2023-11-14] MEDS ORDERED: Sodium Chloride 0.9% 100 ML ONE (15:24)
[2023-11-14 17:46] LABS: ALT (SGPT) 24 U/L (8-55); AST (SGOT) 26 U/L (5-34); Albumin 3.2 g/dL (3.4-4.8); Alkaline Phosphatase 76 U/L (40-110); Anion Gap 13 mmol/L (10-20); BUN (Urea Nitrogen) 24 mg/dL (9.8-20.1); Bilirubin, Total 0.3 mg/dL (0.2-1.2); Calc. Creatinine Clearance 0 mL/min (70-130); Carbon Dioxide 23 mmol/L (23-31); Chloride 112 mmol/L (98-107); Estimated GFR 63; Globulin 3.4 g/dL (2.4-3.5); Glucose 86 mg/dL (83-110); Potassium 3.9 mmol/L (3.5-5.1); Protein, Total 6.6 g/dL (5.8-8.1); Sodium 144 mmol/L (136-145)
== END 2023-11-14 17:49 | disposition home or self-care (01) ==
LOC: ERS 11:31
DX: N99.522 Malfunction of incontinent external stoma of urinary tract (principal); N15.9 Renal tubulo-interstitial disease, unspecified; I10 Essential (primary) hypertension; I25.10 Atherosclerotic heart disease of native coronary artery without angina pectoris; G30.9 Alzheimer's disease, unspecified; F02.80 Dementia in other diseases classified elsewhere, unspecified severity, without behavioral disturbance, psychotic disturbance, mood disturbance, and anxiety; E78.5 Hyperlipidemia, unspecified; K21.9 Gastro-esophageal reflux disease without esophagitis; E03.9 Hypothyroidism, unspecified; M81.0 Age-related osteoporosis without current pathological fracture; Z87.891 Personal history of nicotine dependence; Z55.0 Illiteracy and low-level literacy; Z95.5 Presence of coronary angioplasty implant and graft
CPT/HCPCS: 50435; 75984; 80053; C1729; C1769; J0696; J3490; J7030; Q9967; 36415; 96365; J2250; J3010

== ENCOUNTER 2023-12-01 14:49 | Inpatient (IN) | payer MEDICARE, MEDICAID ==
[2023-12-01 16:32] LABS: ALT (SGPT) 31 U/L (8-55); AST (SGOT) 31 U/L (5-34); Albumin 2.3 g/dL (3.4-4.8); Alkaline Phosphatase 63 U/L (40-110); Anion Gap 13 mmol/L (10-20); BUN (Urea Nitrogen) 29 mg/dL (9.8-20.1); Bilirubin, Total 0.4 mg/dL (0.2-1.2); Calc. Creatinine Clearance 0 mL/min (70-130); Calcium 9.9 mg/dL (7.8-10.44); Carbon Dioxide 18 mmol/L (23-31); Chloride 118 mmol/L (98-107); Estimated GFR 44; Globulin 3.3 g/dL (2.4-3.5); Glucose 151 mg/dL (83-110); Magnesium 1.9 mg/dL (1.6-2.6); Potassium 3.5 mmol/L (3.5-5.1); Protein, Total 5.6 g/dL (5.8-8.1); Sodium 145 mmol/L (136-145)
[2023-12-01 16:35] LABS: Troponin I Less than 0.010 ng/mL (< 0.028)
[2023-12-01] MEDS ORDERED: Cefepime 2 GM VIAL ONE (16:35)
[2023-12-01] MEDS ORDERED: Sodium Chloride 0.9% 100 ML ONE (16:36)
[2023-12-01 16:51] LABS: Hematocrit 42.3 % (36.0-47.0); Hemoglobin 13.1 g/dL (12.0-16.0); Mean Corpuscular Hemoglobin 31.5 pg (27.0-31.0); Mean Corpuscular Volume 101.7 fL (78.0-98.0); Platelet Count 161 10x3/uL (130-400); RBC Distribution Width 13.1 % (11.5-14.5); Red Blood Cell (RBC) Count 4.16 mill/uL (4.20-5.40)
[2023-12-01 16:52] LABS: #Basophils 0.05 10x3/uL (0.0-0.2); %Basophils 0.4 % (0.0-1.0); %Eosinophils 0.7 % (0.0-10.0); %Lymphocytes 16.5 % (21.0-51.0); %Monocytes 12.4 % (0.0-10.0); %Neutrophils 69.2 % (42.0-75.0)
[2023-12-01 17:10] LABS: Bacteria/HPF 4+ HPF (None Seen); Bilirubin Negative (Negative); Blood, Urine 3+ (Negative); CAUTI Indications for Culture Alt mental st,lethar; Clarity Turbid (Clear); Glucose, Urine (Dipstick) Normal (Negative); Ketone, Urine Negative (Negative); Leukocyte 250 Leu/uL (Negative); Nitrite Negative (Negative); Protein, Urine (Dipstick) 50 mg/dL (Neg-Trace); RBC/HPF Greater than 50 HPF (0-3); Specific Gravity, Urine 1.021 (1.002-1.036); Squamous Epithelial 0-3 HPF (0-3); WBC/HPF 21-50 HPF (0-3)
[2023-12-01 17:18] LABS: Urine Culture Reflex Yes Yes
[2023-12-01 21:44] VITALS: BMI 23.0
[2023-12-01] MEDS: Vancomycin (BATCH) 1.25 GM in Premix 1 BAG IVPB SCH (22:06)
[2023-12-01] MEDS ORDERED: Acetaminophen 325 MG TAB PO PRN (22:28)
[2023-12-01] MEDS ORDERED: Ondansetron PF 4 MG/2 ML Vial IVP PRN (22:28)
[2023-12-01] MEDS ORDERED: Ondansetron ODT 4 MG TAB PO PRN (22:28)
[2023-12-01] MEDS ORDERED: Acetaminophen 650 MG Suppository PR PRN (22:28)
[2023-12-02] MEDS: Dextrose 5%-Lactated Ringers 1,000 ML IV SCH (00:17)
[2023-12-02 06:40] LABS: Anion Gap 10 mmol/L (10-20); BUN (Urea Nitrogen) 20 mg/dL (9.8-20.1); Calc. Creatinine Clearance 51 mL/min (70-130); Calcium 9.1 mg/dL (7.8-10.44); Carbon Dioxide 18 mmol/L (23-31); Chloride 121 mmol/L (98-107); Estimated GFR 72; Glucose 112 mg/dL (83-110); Potassium 3.4 mmol/L (3.5-5.1); Sodium 146 mmol/L (136-145)
[2023-12-02] MEDS: Levothyroxine Sodium 125 MCG TAB PO SCH (06:46)
[2023-12-02] MEDS ORDERED: NOREPINEPHRINE 8 MG/250 ML-D5W 250 ML IVPB SCH ×2 (07:45→18:50)
[2023-12-02] MEDS ORDERED: Electrolyte Replacement Protocol 1 EACH FS SCH (07:45)
[2023-12-02] MEDS: Aspirin Chewable 81 MG TAB PO SCH (08:43)
[2023-12-02] MEDS: Famotidine 20 MG TAB PO SCH (08:43)
[2023-12-02] MEDS: cefTRIAXone\\ROCEPHIN 2 GM in Sodium Chloride 0.9% 100 ML IVPB SCH (08:48)
[2023-12-02] MEDS: Sodium Chloride 0.9% 1,000 ML IV SCH ×2 (08:49)
[2023-12-02] MEDS: Famotidine/PF 20 mg/2ml Vial SLOW IVP SCH (08:49)
[2023-12-02] MEDS: Magnesium 2 GM/50 ML(in water) 2 GM in Premix 1 BAG IVPB SCH (08:49)
[2023-12-02] MEDS: Potassium Chloride 20 MEQ TAB PO SCH (08:49)
[2023-12-02] MEDS: Memantine 10 MG TAB PO SCH (08:55)
[2023-12-02 10:05] LABS: Phosphorus 1.8 mg/dL (2.3-4.7)
[2023-12-02] MEDS: Potassium Phosphate 30 MMOL in Sodium Chloride 0.9% 250 ML 250 ML IVPB SCH (11:06)
[2023-12-02] MEDS: Meropenem 2 GM, Admixture Fee 1 EACH in Sodium Chloride 0.9% 100 ML IVPB SCH (14:45)
[2023-12-02] MEDS ORDERED: Sodium Chloride 0.9% 1,000 ML IV SCH (17:00)
[2023-12-02] MEDS: Atorvastatin Calcium 10 MG TAB PO SCH (21:38)
[2023-12-02] MEDS: Donepezil HCl 10 MG TAB PO SCH (21:38)
[2023-12-03 06:44] LABS: #Basophils 0.03 10x3/uL (0.0-0.2); %Basophils 0.4 % (0.0-1.0); %Eosinophils 5.4 % (0.0-10.0); %Lymphocytes 19.3 % (21.0-51.0); %Monocytes 8.6 % (0.0-10.0); %Neutrophils 65.9 % (42.0-75.0); Hematocrit 32.9 % (36.0-47.0); Hemoglobin 10.4 g/dL (12.0-16.0); Mean Corpuscular HGB CONC 31.6 g/dL (32.0-36.0); Mean Corpuscular Hemoglobin 30.7 pg (27.0-31.0); Mean Corpuscular Volume 97.1 fL (78.0-98.0); Mean Platelet Volume 10.4 fL (7.4-10.4); Platelet Count 162 10x3/uL (130-400); RBC Distribution Width 12.9 % (11.5-14.5); Red Blood Cell (RBC) Count 3.39 mill/uL (4.20-5.40)
[2023-12-03 07:09] LABS: Anion Gap 8 mmol/L (10-20); BUN (Urea Nitrogen) 15 mg/dL (9.8-20.1); Calc. Creatinine Clearance 67 mL/min (70-130); Calcium 8.8 mg/dL (7.8-10.44); Carbon Dioxide 20 mmol/L (23-31); Chloride 118 mmol/L (98-107); Estimated GFR 90; Glucose 77 mg/dL (83-110); Potassium 3.5 mmol/L (3.5-5.1); Sodium 142 mmol/L (136-145)
[2023-12-03] MEDS: Potassium Chloride 20 MEQ TAB PO SCH (08:29)
[2023-12-04 05:31] LABS: #Basophils 0.03 10x3/uL (0.0-0.2); %Basophils 0.4 % (0.0-1.0); %Eosinophils 8.2 % (0.0-10.0); %Lymphocytes 23.6 % (21.0-51.0); %Monocytes 7.9 % (0.0-10.0); %Neutrophils 59.5 % (42.0-75.0); Hematocrit 35.2 % (36.0-47.0); Hemoglobin 11.3 g/dL (12.0-16.0); Mean Corpuscular HGB CONC 32.1 g/dL (32.0-36.0); Mean Corpuscular Hemoglobin 31.3 pg (27.0-31.0); Mean Corpuscular Volume 97.5 fL (78.0-98.0); Mean Platelet Volume 10.9 fL (7.4-10.4); Platelet Count 188 10x3/uL (130-400); RBC Distribution Width 12.9 % (11.5-14.5); Red Blood Cell (RBC) Count 3.61 mill/uL (4.20-5.40)
[2023-12-04 05:48] LABS: Anion Gap 8 mmol/L (10-20); BUN (Urea Nitrogen) 11 mg/dL (9.8-20.1); Calc. Creatinine Clearance 66 mL/min (70-130); Calcium 9.2 mg/dL (7.8-10.44); Carbon Dioxide 20 mmol/L (23-31); Chloride 119 mmol/L (98-107); Estimated GFR 90; Glucose 74 mg/dL (83-110); Potassium 4.1 mmol/L (3.5-5.1); Sodium 143 mmol/L (136-145)
[2023-12-04] MEDS: Milk Of Magnesia 30 ML UDCUP PO SCH (21:29)
[2023-12-05 06:12] LABS: #Basophils 0.03 10x3/uL (0.0-0.2); %Basophils 0.5 % (0.0-1.0); %Eosinophils 10.3 % (0.0-10.0); %Lymphocytes 33.8 % (21.0-51.0); %Monocytes 7.7 % (0.0-10.0); %Neutrophils 47.4 % (42.0-75.0); Hematocrit 38.1 % (36.0-47.0); Hemoglobin 12.2 g/dL (12.0-16.0); Mean Corpuscular Hemoglobin 30.2 pg (27.0-31.0); Mean Corpuscular Volume 94.3 fL (78.0-98.0); Mean Platelet Volume 10.3 fL (7.4-10.4); Platelet Count 229 10x3/uL (130-400); RBC Distribution Width 12.8 % (11.5-14.5); Red Blood Cell (RBC) Count 4.04 mill/uL (4.20-5.40)
[2023-12-05 07:05] LABS: Anion Gap 8 mmol/L (10-20); BUN (Urea Nitrogen) 13 mg/dL (9.8-20.1); Calc. Creatinine Clearance 55 mL/min (70-130); Calcium 9.8 mg/dL (7.8-10.44); Carbon Dioxide 23 mmol/L (23-31); Chloride 112 mmol/L (98-107); Estimated GFR 80; Glucose 70 mg/dL (83-110); Potassium 4.1 mmol/L (3.5-5.1); Sodium 139 mmol/L (136-145)
[2023-12-05] MEDS ORDERED: Nystatin/Triamcinolone Cream 30 GM TUBE TOP PRN (18:48)
[2023-12-05] MEDS: Sucralfate 1 GM TAB PO SCH (21:11)
[2023-12-06 05:39] LABS: #Basophils 0.04 10x3/uL (0.0-0.2); %Basophils 0.6 % (0.0-1.0); %Eosinophils 7.2 % (0.0-10.0); %Lymphocytes 32.8 % (21.0-51.0); %Monocytes 6.6 % (0.0-10.0); %Neutrophils 52.2 % (42.0-75.0); Hematocrit 40.8 % (36.0-47.0); Hemoglobin 13.4 g/dL (12.0-16.0); Mean Corpuscular HGB CONC 32.8 g/dL (32.0-36.0); Mean Corpuscular Hemoglobin 31.1 pg (27.0-31.0); Mean Corpuscular Volume 94.7 fL (78.0-98.0); Platelet Count 256 10x3/uL (130-400); RBC Distribution Width 12.6 % (11.5-14.5); Red Blood Cell (RBC) Count 4.31 mill/uL (4.20-5.40)
[2023-12-06 05:57] LABS: Anion Gap 8 mmol/L (10-20); BUN (Urea Nitrogen) 16 mg/dL (9.8-20.1); Calc. Creatinine Clearance 54 mL/min (70-130); Calcium 10.1 mg/dL (7.8-10.44); Carbon Dioxide 20 mmol/L (23-31); Chloride 112 mmol/L (98-107); Estimated GFR 77; Glucose 75 mg/dL (83-110); Potassium 4.3 mmol/L (3.5-5.1); Sodium 136 mmol/L (136-145)
[2023-12-06] MEDS: Oxybutynin 5 MG TAB PO SCH (08:48)
[2023-12-07 15:56] VITALS: BMI 22.6
[2023-12-09 08:19] VITALS: TEMP 97.4
[2023-12-09 16:17] VITALS: BP 132/66
== END 2023-12-09 16:00 | DRG 871 ==
LOC: ERS 14:49 → IMCU/EMU 19:51 → CCU 12-02 19:10 → T4-A 12-04 13:28
PROVIDERS: ADMIT Student in an Organized Health Care Education/Training Program; ATTEND Family Medicine
PROC: 3E033XZ Introduction of Vasopressor into Peripheral Vein, Percutaneous Approach (ICD-10-PCS; 2023-12-02)
PROC: 02HV33Z Insertion of Infusion Device into Superior Vena Cava, Percutaneous Approach (ICD-10-PCS; principal; 2023-12-06)
DX: A41.4 Sepsis due to anaerobes (principal); R65.21 Severe sepsis with septic shock; Z16.23 Resistance to quinolones and fluoroquinolones; G93.40 Encephalopathy, unspecified; N17.9 Acute kidney failure, unspecified; N39.0 Urinary tract infection, site not specified; I25.10 Atherosclerotic heart disease of native coronary artery without angina pectoris; K21.9 Gastro-esophageal reflux disease without esophagitis; Z96.651 Presence of right artificial knee joint; R00.1 Bradycardia, unspecified; B96.20 Unspecified Escherichia coli [E. coli] as the cause of diseases classified elsewhere; G30.9 Alzheimer's disease, unspecified; F02.80 Dementia in other diseases classified elsewhere, unspecified severity, without behavioral disturbance, psychotic disturbance, mood disturbance, and anxiety; E78.00 Pure hypercholesterolemia, unspecified; Z66 Do not resuscitate; Z79.890 Hormone replacement therapy; Z79.899 Other long term (current) drug therapy; Z79.82 Long term (current) use of aspirin; Z95.5 Presence of coronary angioplasty implant and graft; Z90.49 Acquired absence of other specified parts of digestive tract; Z90.710 Acquired absence of both cervix and uterus; Z93.6 Other artificial openings of urinary tract status; Z87.442 Personal history of urinary calculi; Z87.891 Personal history of nicotine dependence
CPT/HCPCS: 36415; 36569; 70450; 71045; 74176; 76937; 77001; 80048; 80053; 81001; 82533; 83605; 83735; 84100; 84443; 84484; 85025; 87040; 87077; 87086; 87149; 87186; 93005; C1751; J0692; J0696; J2185; J3370; J3475; J3490; J7050; S0028

== ENCOUNTER 2024-03-29 15:55 | Inpatient (IN) | payer MEDICARE, MEDICAID ==
[2024-03-29 17:25] LABS: #Basophils 0.04 10x3/uL (0.0-0.2); %Basophils 0.5 % (0.0-1.0); %Eosinophils 1.4 % (0.0-10.0); %Lymphocytes 21.5 % (21.0-51.0); %Monocytes 7.7 % (0.0-10.0); %Neutrophils 68.6 % (42.0-75.0); Hemoglobin 13.3 g/dL (12.0-16.0); Mean Corpuscular HGB CONC 30.9 g/dL (32.0-36.0); Mean Corpuscular Hemoglobin 28.6 pg (27.0-31.0); Mean Corpuscular Volume 92.5 fL (78.0-98.0); Mean Platelet Volume 9.3 fL (7.4-10.4); Platelet Count 191 10x3/uL (130-400); Red Blood Cell (RBC) Count 4.65 mill/uL (4.20-5.40)
[2024-03-29 17:35] LABS: Bacteria/HPF 4+ HPF (None Seen); Bilirubin Negative (Negative); Blood, Urine 3+ (Negative); CAUTI Indications for Culture Pelvic or flank pain; Clarity Turbid (Clear); Glucose, Urine (Dipstick) Normal (Negative); Ketone, Urine Negative (Negative); Leukocyte 500 Leu/uL (Negative); Nitrite 2+ (Negative); Protein, Urine (Dipstick) 70 mg/dL (Neg-Trace); Specific Gravity, Urine 1.007 (1.002-1.036); Squamous Epithelial 0-3 HPF (0-3); Urobilinogen Normal mg/dL (Less than 2)
[2024-03-29 17:36] LABS: RBC/HPF 21-50 HPF (0-3)
[2024-03-29 17:37] LABS: Urine Culture Reflex Yes Yes
[2024-03-29 17:39] LABS: ALT (SGPT) 8 U/L (8-55); AST (SGOT) 13 U/L (5-34); Alkaline Phosphatase 86 U/L (40-110); Anion Gap 11 mmol/L (10-20); BUN (Urea Nitrogen) 17 mg/dL (9.8-20.1); Bilirubin, Total 0.4 mg/dL (0.2-1.2); Calc. Creatinine Clearance 0 mL/min (70-130); Calcium 10.4 mg/dL (7.8-10.44); Carbon Dioxide 22 mmol/L (23-31); Chloride 109 mmol/L (98-107); Estimated GFR 65; Globulin 3.6 g/dL (2.4-3.5); Glucose 121 mg/dL (83-110); Potassium 3.9 mmol/L (3.5-5.1); Protein, Total 6.6 g/dL (5.8-8.1); Sodium 138 mmol/L (136-145)
[2024-03-29] MEDS ORDERED: cefTRIAXone (ROCEPHIN) 2 GM VIAL ONE (18:22)
[2024-03-29] MEDS ORDERED: Sodium Chloride 0.9% 100 ML ONE (18:22)
[2024-03-29] MEDS ORDERED: Acetaminophen 325 MG TAB PO PRN (18:26)
[2024-03-29] MEDS ORDERED: Ondansetron ODT 4 MG TAB PO PRN (18:26)
[2024-03-29] MEDS ORDERED: Cyclobenzaprine 10 MG TAB PO PRN (19:54)
[2024-03-29] MEDS ORDERED: traMADol HCl 50 MG TAB PO PRN (19:54)
[2024-03-29 20:04] VITALS: BMI 20.9
[2024-03-29] MEDS: Pantoprazole DR 40 MG TAB PO SCH (20:52)
[2024-03-29] MEDS: Sucralfate 1 GM TAB PO SCH (20:52)
[2024-03-29] MEDS: Atorvastatin Calcium 10 MG TAB PO SCH (20:52)
[2024-03-29] MEDS: Memantine 10 MG TAB PO SCH (20:52)
[2024-03-29] MEDS ORDERED: Famotidine/PF 20 mg/2ml Vial SLOW IVP SCH (21:00)
[2024-03-29] MEDS ORDERED: Famotidine 20 MG TAB PO SCH (21:00)
[2024-03-29] MEDS ORDERED: diphenhydrAMINE 25 MG CAP PO PRN (21:37)
[2024-03-29] MEDS ORDERED: Bisacodyl 5 MG TAB PO PRN (21:37)
[2024-03-29] MEDS ORDERED: hydrOXYzine 25 MG TAB PO PRN (21:37)
[2024-03-30] MEDS: Levothyroxine Sodium 125 MCG TAB PO SCH (06:04)
[2024-03-30 06:49] LABS: #Basophils 0.05 10x3/uL (0.0-0.2); %Basophils 0.6 % (0.0-1.0); %Eosinophils 2.2 % (0.0-10.0); %Monocytes 8.2 % (0.0-10.0); %Neutrophils 70.8 % (42.0-75.0); Hematocrit 41.7 % (36.0-47.0); Hemoglobin 12.9 g/dL (12.0-16.0); Mean Corpuscular HGB CONC 30.9 g/dL (32.0-36.0); Mean Corpuscular Hemoglobin 28.9 pg (27.0-31.0); Mean Corpuscular Volume 93.5 fL (78.0-98.0); Mean Platelet Volume 9.7 fL (7.4-10.4); Platelet Count 182 10x3/uL (130-400); RBC Distribution Width 14.9 % (11.5-14.5); Red Blood Cell (RBC) Count 4.46 mill/uL (4.20-5.40)
[2024-03-30 07:05] LABS: ALT (SGPT) 6 U/L (8-55); AST (SGOT) 12 U/L (5-34); Albumin 2.8 g/dL (3.4-4.8); Alkaline Phosphatase 78 U/L (40-110); Anion Gap 11 mmol/L (10-20); BUN (Urea Nitrogen) 15 mg/dL (9.8-20.1); Bilirubin, Total 0.4 mg/dL (0.2-1.2); Calc. Creatinine Clearance 41 mL/min (70-130); Calcium 10.2 mg/dL (7.8-10.44); Carbon Dioxide 22 mmol/L (23-31); Chloride 110 mmol/L (98-107); Estimated GFR 63; Globulin 3.5 g/dL (2.4-3.5); Glucose 105 mg/dL (83-110); Potassium 3.8 mmol/L (3.5-5.1); Protein, Total 6.3 g/dL (5.8-8.1); Sodium 139 mmol/L (136-145)
[2024-03-30] MEDS: Enoxaparin 40 MG (0.4 mL) SYRINGE SC SCH (07:41)
[2024-03-30] MEDS ORDERED: Sodium Chloride 0.9% 500 ML ONE (10:26)
[2024-03-30] MEDS ORDERED: Sodium Bicarbonate 2.5 MEQ/5 ML SDV ONE (10:26)
[2024-03-30] MEDS ORDERED: Iopamidol 30 ML ONE (10:26)
[2024-03-30] MEDS: Pancrelipase DR 12,000 1 CAP PO SCH (10:28)
[2024-03-30] MEDS: Aspirin Chewable 81 MG TAB PO SCH (10:29)
[2024-03-30] MEDS: Loratadine 10 MG TAB PO SCH (10:29)
[2024-03-30] MEDS ORDERED: Lidocaine 1% PF 5 ML VIAL ONE (11:05)
[2024-03-30] MEDS ORDERED: cefTRIAXone\\ROCEPHIN 1 GM in Sodium Chloride 0.9% 100 ML IVPB SCH (18:00)
[2024-03-30] MEDS: traMADol HCl 50 MG TAB PO PRN (18:19)
[2024-03-30] MEDS: Donepezil HCl 10 MG TAB PO SCH (20:10)
[2024-03-31 08:32] VITALS: BP 137/72; TEMP 97.4
[2024-04-01] MEDS ORDERED: FLU (Fluad Triv) TS24-25 (65UP)/MF59C/PF 45 MCG/0.5 ML Syringe IM ONE (20:30)
== END 2024-03-31 11:48 | DRG 700 ==
LOC: ERS 15:55 → T4-B 18:26 → OBSVTOIN 03-30 15:08
PROVIDERS: ADMIT Internal Medicine; ATTEND Internal Medicine
DX: T83.022A Displacement of nephrostomy catheter, initial encounter (principal); E03.9 Hypothyroidism, unspecified; I25.10 Atherosclerotic heart disease of native coronary artery without angina pectoris; K21.9 Gastro-esophageal reflux disease without esophagitis; Z79.890 Hormone replacement therapy; Z79.899 Other long term (current) drug therapy; Z79.82 Long term (current) use of aspirin; E78.5 Hyperlipidemia, unspecified; F03.B0 Unspecified dementia, moderate, without behavioral disturbance, psychotic disturbance, mood disturbance, and anxiety; N20.0 Calculus of kidney
CPT/HCPCS: 36415; 50435; 75984; 80053; 81001; 83605; 85025; 87040; 87077; 87086; 87186; C1729; C1769; G0378; J0696; J1650; J7030; Q9967

== ENCOUNTER 2024-06-29 07:01 | Day surgery (SDC) | payer MEDICARE, MEDICAID ==
[2024-06-29] MEDS ORDERED: Sodium Chloride 0.9% 500 ML ONE (07:58)
[2024-06-29] MEDS ORDERED: Sodium Bicarbonate 2.5 MEQ/5 ML SDV ONE (07:58)
[2024-06-29] MEDS ORDERED: Lidocaine 1% w/Epinephrine 1:100K 20 ML VIAL ONE (07:58)
[2024-06-29] MEDS ORDERED: Iopamidol 30 ML ONE (07:59)
== END 2024-06-29 10:30 ==
LOC: SPEC 07:01
PROVIDERS: ATTEND Urology
PROC: 0T25X0Z Change Drainage Device in Kidney, External Approach (ICD-10-PCS; principal; 2024-06-29)
DX: N13.2 Hydronephrosis with renal and ureteral calculous obstruction (principal)
CPT/HCPCS: 50435; 75984; C1729; C1769; J7030; Q9967

== ENCOUNTER 2024-08-02 10:44 | Emergency (ER) | payer MEDICARE, OTHER ==
[2024-08-02 11:44] LABS: #Basophils 0.06 10x3/uL (0.0-0.2); %Basophils 0.8 % (0.0-1.0); %Eosinophils 5.8 % (0.0-10.0); %Monocytes 6.8 % (0.0-10.0); %Neutrophils 62.5 % (42.0-75.0); Hematocrit 41.4 % (36.0-47.0); Mean Corpuscular HGB CONC 31.4 g/dL (32.0-36.0); Mean Corpuscular Hemoglobin 28.3 pg (27.0-31.0); Mean Platelet Volume 9.4 fL (7.4-10.4); Platelet Count 241 10x3/uL (130-400); RBC Distribution Width 13.9 % (11.5-14.5)
[2024-08-02 12:11] LABS: ALT (SGPT) 16 U/L (Less than 34); AST (SGOT) 23 U/L (11-34); Albumin 2.9 g/dL (3.1-4.5); Alkaline Phosphatase 65 U/L (40-110); Anion Gap 9 mmol/L (10-20); BUN (Urea Nitrogen) 12 mg/dL (9.8-20.1); Bilirubin, Total 0.4 mg/dL (0.3-1.2); Calc. Creatinine Clearance 0 mL/min (70-130); Calcium 10.2 mg/dL (7.8-10.44); Carbon Dioxide 27 mmol/L (23-31); Chloride 110 mmol/L (98-107); Estimated GFR 78; Globulin 3.5 g/dL (2.4-3.5); Glucose 103 mg/dL (83-110); Potassium 3.8 mmol/L (3.5-5.1); Protein, Total 6.4 g/dL (5.8-8.1); Sodium 142 mmol/L (136-145)
[2024-08-02] MEDS ORDERED: Iopamidol 30 ML ONE (14:05)
[2024-08-02] MEDS ORDERED: Sodium Bicarbonate 2.5 MEQ/5 ML SDV ONE (14:05)
[2024-08-02] MEDS ORDERED: Lidocaine 1% PF 5 ML VIAL ONE (14:05)
[2024-08-02] MEDS ORDERED: Sodium Chloride 0.9% 500 ML ONE (14:06)
== END 2024-08-02 19:25 | disposition home or self-care (01) ==
LOC: ERS 10:44
DX: N99.522 Malfunction of incontinent external stoma of urinary tract (principal); I25.10 Atherosclerotic heart disease of native coronary artery without angina pectoris; I10 Essential (primary) hypertension; Z87.891 Personal history of nicotine dependence
CPT/HCPCS: 50435; 75984; 80053; 85025; C1729; C1769; J7030; Q9967; 36415

== ENCOUNTER 2025-01-04 07:58 | Day surgery (SDC) | payer MEDICARE, MEDICAID ==
[2025-01-04] MEDS ORDERED: Lidocaine 1% w/Epinephrine 1:100K 20 ML VIAL ONE (08:02)
[2025-01-04] MEDS ORDERED: Sodium Bicarbonate 2.5 MEQ/5 ML SDV ONE (08:02)
== END 2025-01-04 09:40 | disposition home or self-care (01) ==
LOC: SPEC 07:58
PROVIDERS: ATTEND Urology
PROC: 0T25X0Z Change Drainage Device in Kidney, External Approach (ICD-10-PCS; principal; 2025-01-04)
DX: N13.2 Hydronephrosis with renal and ureteral calculous obstruction (principal)
CPT/HCPCS: 50435; 75984; C1729; C1769; J7030; Q9967

== ENCOUNTER 2025-01-15 14:01 | Inpatient (IN) | payer MEDICARE, MEDICAID ==
[2025-01-15] MEDS ORDERED: NOREPINEPHRINE 8 MG/250 ML-D5W 250 ML ONE (14:47)
[2025-01-15 17:05] LABS: Hematocrit 45.6 % (36.0-47.0); Hemoglobin 13.4 g/dL (12.0-16.0); Mean Corpuscular Hemoglobin 27.9 pg (27.0-31.0); Mean Corpuscular Volume 95.0 fL (78.0-98.0); Platelet Count 148 10x3/uL (130-400); Red Blood Cell (RBC) Count 4.80 mill/uL (4.20-5.40); White Blood Cell (WBC) Count 24.85 10x3/uL (4.8-10.8)
[2025-01-15] MEDS ORDERED: Vancomycin 1 GM/200 ML (FROZEN) BAG ONE (17:07)
[2025-01-15 17:09] LABS: Actual Bicarbonate (HCO3a) 20.6 mEq/L (22-28); Analyzer IN Cardio ER; Base Excess (BEa) -2.0 mEq/L (-2.0 to +3.0); CO2 Tension 29.3 mmHg (35.0-45.0); Calcium, Ionized (arterial) 1.42 mmol/L (1.12-1.30); Hematocrit-ABG 41 % (36.0-47.0); Hemoglobin (Hb) 13.9 g/dL (12.0-16.0); O2 Tension (PaO2), arterial 86.9 mmHg (> 60.0); Potassium - ABG Lab 3.44 mmol/L (3.70-5.30); pH, Arterial 7.464 (7.35-7.45)
[2025-01-15 17:16] LABS: ALT (SGPT) 23 U/L (Less than 34); AST (SGOT) 43 U/L (11-34); Albumin 2.5 g/dL (3.1-4.5); Alkaline Phosphatase 60 U/L (40-110); Anion Gap 13 mmol/L (10-20); BUN (Urea Nitrogen) 45 mg/dL (9.8-20.1); Bilirubin, Total 0.7 mg/dL (0.3-1.2); CK (CPK) 788 U/L (29-168); Calc. Creatinine Clearance 0 mL/min (70-130); Calcium 10.3 mg/dL (7.8-10.44); Carbon Dioxide 19 mmol/L (23-31); Chloride 112 mmol/L (98-107); Globulin 3.4 g/dL (2.4-3.5); Glucose 119 mg/dL (83-110); Lipase 7 U/L (8-78); Magnesium 1.7 mg/dL (1.6-2.6); Potassium 4.0 mmol/L (3.5-5.1); Sodium 140 mmol/L (136-145)
[2025-01-15 17:17] LABS: ALV-art Gradient 76.115 mmHg (0-20); Puncture Site Left Brachial artery
[2025-01-15 17:24] LABS: Bacteria/HPF 4+ HPF (None Seen); CAUTI Indications for Culture Alt mental st,lethar; Glucose, Urine (Dipstick) Normal (Negative); Leukocyte 500 Leu/uL (Negative); Protein, Urine (Dipstick) 100 mg/dL (Neg-Trace); RBC/HPF 21-50 HPF (0-3); Specific Gravity, Urine 1.015 (1.002-1.036); WBC/HPF Greater than 50 HPF (0-3)
[2025-01-15 17:27] LABS: Urine Culture Reflex Yes Yes
[2025-01-15 17:31] LABS: Burr Cells MODERATE= 6-15 cells HPF (0-1); Macrocytosis SLIGHT = 6-15 cells HPF (0-5); Platelet Adequacy Comment Platelets Normal; Polychromasia SLIGHT = 2-3 cells HPF (0-2); Smudge Cells 1.0 %; Toxic Granulation SLIGHT
[2025-01-15] MEDS ORDERED: Ondansetron PF 4 MG/2 ML Vial IVP PRN (19:49)
[2025-01-15] MEDS ORDERED: Pharmacy to Dose : VANC IVPB PRN (20:01)
[2025-01-15 20:51] LABS: INR-International Normal Ratio 1.5; Prothrombin Time 18.2 sec (12.0-14.7)
[2025-01-15 20:52] LABS: PTT 39.1 sec (22.9-36.1)
[2025-01-15] MEDS ORDERED: Heparin 5,000 UNITS/ML VIAL SC SCH (21:00)
[2025-01-15] MEDS ORDERED: Sodium Bicarbonate 2.5 MEQ/5 ML SDV ONE (21:18)
[2025-01-15] MEDS ORDERED: Iopamidol 100 ML FS ONE (21:18)
[2025-01-15] MEDS ORDERED: Lidocaine 1% w/Epinephrine 1:100K 20 ML VIAL ONE (21:18)
[2025-01-16] MEDS ORDERED: Vancomycin Dose by Levels Sliding Scale (Wt <71) FS SCH (02:45)
[2025-01-16 05:12] LABS: Hematocrit 37.8 % (36.0-47.0); Hemoglobin 11.8 g/dL (12.0-16.0); Mean Corpuscular Hemoglobin 27.9 pg (27.0-31.0); Mean Corpuscular Volume 89.4 fL (78.0-98.0); Platelet Count 123 10x3/uL (130-400); Red Blood Cell (RBC) Count 4.23 mill/uL (4.20-5.40); White Blood Cell (WBC) Count 20.72 10x3/uL (4.8-10.8)
[2025-01-16 05:19] LABS: Anion Gap 13 mmol/L (10-20); BUN (Urea Nitrogen) 46 mg/dL (9.8-20.1); Calc. Creatinine Clearance 18 mL/min (70-130); Calcium 9.5 mg/dL (7.8-10.44); Carbon Dioxide 20 mmol/L (23-31); Chloride 112 mmol/L (98-107); Glucose 124 mg/dL (83-110); Potassium 3.2 mmol/L (3.5-5.1); Sodium 142 mmol/L (136-145)
[2025-01-16 05:42] LABS: Burr Cells SLIGHT = 2-5 cells HPF (0-1); Platelet Adequacy Comment Platelets Decreased; Polychromasia SLIGHT = 2-3 cells HPF (0-2); Smudge Cells 1.9 %
[2025-01-16] MEDS: Potassium Chloride 20 MEQ in Premix 1 BAG IVPB SCH (08:13)
[2025-01-16] MEDS: Pantoprazole 40 MG VIAL IVP SCH (08:13)
[2025-01-16] MEDS: NOREPINEPHRINE 8 MG/250 ML-D5W 250 ML IVPB SCH (08:25)
[2025-01-16] MEDS ORDERED: Electrolyte Replacement Protocol 1 EACH FS SCH (12:00)
[2025-01-16] MEDS: Magnesium 2 GM/50 ML(in water) 2 GM in Premix 1 BAG IVPB SCH (13:52)
[2025-01-17 04:28] LABS: #Basophils 0.05 10x3/uL (0.0-0.2); #Eosinophils 0.24 10x3/uL (0.0-0.7); #Monocytes 0.52 10x3/uL (0.11-0.59); #Neutrophils 10.90 10x3/uL (1.40-6.50); %Basophils 0.4 % (0.0-1.0); %Eosinophils 1.9 % (0.0-10.0); %Lymphocytes 5.2 % (21.0-51.0); %Monocytes 4.2 % (0.0-10.0); %Neutrophils 87.8 % (42.0-75.0); Hematocrit 37.4 % (36.0-47.0); Hemoglobin 11.7 g/dL (12.0-16.0); Mean Corpuscular Hemoglobin 27.9 pg (27.0-31.0); Mean Corpuscular Volume 89.3 fL (78.0-98.0); Platelet Count 122 10x3/uL (130-400); Red Blood Cell (RBC) Count 4.19 mill/uL (4.20-5.40); White Blood Cell (WBC) Count 12.42 10x3/uL (4.8-10.8)
[2025-01-17 05:19] LABS: Anion Gap 12 mmol/L (10-20); BUN (Urea Nitrogen) 40 mg/dL (9.8-20.1); Calc. Creatinine Clearance 21 mL/min (70-130); Calcium 9.7 mg/dL (7.8-10.44); Carbon Dioxide 21 mmol/L (23-31); Chloride 116 mmol/L (98-107); Glucose 93 mg/dL (83-110); Magnesium 2.4 mg/dL (1.6-2.6); Potassium 3.5 mmol/L (3.5-5.1); Sodium 145 mmol/L (136-145)
[2025-01-17] MEDS: Potassium Chloride 20 MEQ in Premix 1 BAG IVPB SCH (07:12)
[2025-01-17 18:00] LABS: Potassium 3.7 mmol/L (3.5-5.1)
[2025-01-17] MEDS: Heparin 5,000 UNITS/ML VIAL SC SCH (20:05)
[2025-01-18 06:07] LABS: #Basophils Less than 0.03 10x3/uL (0.0-0.2); #Eosinophils 0.08 10x3/uL (0.0-0.7); #Monocytes 0.65 10x3/uL (0.11-0.59); #Neutrophils 6.61 10x3/uL (1.40-6.50); %Basophils 0.2 % (0.0-1.0); %Eosinophils 1.0 % (0.0-10.0); %Lymphocytes 9.2 % (21.0-51.0); %Monocytes 8.0 % (0.0-10.0); %Neutrophils 81.1 % (42.0-75.0); Hematocrit 35.1 % (36.0-47.0); Hemoglobin 11.2 g/dL (12.0-16.0); Mean Corpuscular Hemoglobin 28.3 pg (27.0-31.0); Mean Corpuscular Volume 88.6 fL (78.0-98.0); Platelet Count 84 10x3/uL (130-400); Red Blood Cell (RBC) Count 3.96 mill/uL (4.20-5.40); White Blood Cell (WBC) Count 8.15 10x3/uL (4.8-10.8)
[2025-01-18 06:13] LABS: Anion Gap 11 mmol/L (10-20); BUN (Urea Nitrogen) 35 mg/dL (9.8-20.1); Calc. Creatinine Clearance 27 mL/min (70-130); Calcium 9.5 mg/dL (7.8-10.44); Carbon Dioxide 18 mmol/L (23-31); Chloride 120 mmol/L (98-107); Glucose 69 mg/dL (83-110); Potassium 4.1 mmol/L (3.5-5.1); Sodium 145 mmol/L (136-145)
[2025-01-19] MEDS: Levothyroxine 150 MCG TAB PO SCH (04:58)
[2025-01-19] MEDS: Scopolamine 1 mg/72 hour Patch TD SCH (18:37)
[2025-01-20 06:04] VITALS: BMI 25.0
[2025-01-20 07:22] LABS: #Basophils Less than 0.03 10x3/uL (0.0-0.2); #Eosinophils 0.41 10x3/uL (0.0-0.7); #Monocytes 1.00 10x3/uL (0.11-0.59); #Neutrophils 7.54 10x3/uL (1.40-6.50); %Basophils 0.2 % (0.0-1.0); %Eosinophils 3.9 % (0.0-10.0); %Lymphocytes 13.2 % (21.0-51.0); %Monocytes 9.6 % (0.0-10.0); %Neutrophils 72.0 % (42.0-75.0); Hematocrit 36.8 % (36.0-47.0); Hemoglobin 11.5 g/dL (12.0-16.0); Mean Corpuscular Hemoglobin 28.0 pg (27.0-31.0); Mean Corpuscular Volume 89.5 fL (78.0-98.0); Platelet Count 80 10x3/uL (130-400); Red Blood Cell (RBC) Count 4.11 mill/uL (4.20-5.40); White Blood Cell (WBC) Count 10.46 10x3/uL (4.8-10.8)
[2025-01-20 07:48] LABS: Anion Gap 13 mmol/L (10-20); BUN (Urea Nitrogen) 31 mg/dL (9.8-20.1); Calc. Creatinine Clearance 37 mL/min (70-130); Calcium 8.8 mg/dL (7.8-10.44); Carbon Dioxide 19 mmol/L (23-31); Chloride 123 mmol/L (98-107); Glucose 121 mg/dL (83-110); Potassium 3.8 mmol/L (3.5-5.1); Sodium 151 mmol/L (136-145)
[2025-01-20] MEDS: Acetaminophen 325 MG (10.15 ML) UDCUP PO PRN (16:47)
[2025-01-20 18:28] LABS: Anion Gap 12 mmol/L (10-20); BUN (Urea Nitrogen) 27 mg/dL (9.8-20.1); Calc. Creatinine Clearance 40 mL/min (70-130); Calcium 8.8 mg/dL (7.8-10.44); Carbon Dioxide 21 mmol/L (23-31); Chloride 118 mmol/L (98-107); Glucose 172 mg/dL (83-110); Potassium 3.4 mmol/L (3.5-5.1); Sodium 148 mmol/L (136-145)
[2025-01-20] MEDS: Glycopyrrolate 0.4 MG/ 2 ML VIAL SLOW IVP SCH (21:58)
[2025-01-20] MEDS: Potassium Chloride 20 MEQ in Premix 1 BAG IVPB SCH (21:59)
[2025-01-20] MEDS: Glycopyrrolate 0.2 MG/ML 5 ML SYRINGE SLOW IVP SCH (22:20)
[2025-01-21 04:26] LABS: #Basophils 0.03 10x3/uL (0.0-0.2); #Eosinophils 0.40 10x3/uL (0.0-0.7); #Monocytes 0.60 10x3/uL (0.11-0.59); #Neutrophils 6.77 10x3/uL (1.40-6.50); %Basophils 0.3 % (0.0-1.0); %Eosinophils 4.4 % (0.0-10.0); %Lymphocytes 13.0 % (21.0-51.0); %Monocytes 6.6 % (0.0-10.0); %Neutrophils 74.8 % (42.0-75.0); Hematocrit 35.2 % (36.0-47.0); Hemoglobin 10.6 g/dL (12.0-16.0); Mean Corpuscular Hemoglobin 27.6 pg (27.0-31.0); Mean Corpuscular Volume 91.7 fL (78.0-98.0); Platelet Count 113 10x3/uL (130-400); Red Blood Cell (RBC) Count 3.84 mill/uL (4.20-5.40); White Blood Cell (WBC) Count 9.06 10x3/uL (4.8-10.8)
[2025-01-21 04:45] LABS: ALT (SGPT) 71 U/L (Less than 34); AST (SGOT) 61 U/L (11-34); Albumin 1.6 g/dL (3.1-4.5); Alkaline Phosphatase 56 U/L (40-110); Anion Gap 9 mmol/L (10-20); BUN (Urea Nitrogen) 27 mg/dL (9.8-20.1); Bilirubin, Total 0.5 mg/dL (0.3-1.2); Calc. Creatinine Clearance 38 mL/min (70-130); Calcium 8.6 mg/dL (7.8-10.44); Carbon Dioxide 24 mmol/L (23-31); Chloride 116 mmol/L (98-107); Globulin 2.7 g/dL (2.4-3.5); Glucose 134 mg/dL (83-110); Magnesium 1.8 mg/dL (1.6-2.6); Potassium 3.8 mmol/L (3.5-5.1); Sodium 145 mmol/L (136-145)
[2025-01-21] MEDS: Magnesium 2 GM/50 ML(in water) 2 GM in Premix 1 BAG IVPB SCH (06:36)
[2025-01-21 07:28] LABS: Potassium 4.2 mmol/L (3.5-5.1)
[2025-01-21] MEDS: Albumin 25% 25 GM (100 mL) BOT IVPB SCH ×2 (08:24→12:17)
[2025-01-22 06:08] LABS: Anion Gap 11 mmol/L (10-20); BUN (Urea Nitrogen) 19 mg/dL (9.8-20.1); Calc. Creatinine Clearance 52 mL/min (70-130); Calcium 9.0 mg/dL (7.8-10.44); Carbon Dioxide 22 mmol/L (23-31); Chloride 113 mmol/L (98-107); Glucose 101 mg/dL (83-110); Magnesium 2.1 mg/dL (1.6-2.6); Potassium 4.1 mmol/L (3.5-5.1); Sodium 142 mmol/L (136-145)
[2025-01-22 07:09] LABS: Hematocrit 35.6 % (36.0-47.0); Hemoglobin 11.1 g/dL (12.0-16.0); Mean Corpuscular Hemoglobin 27.4 pg (27.0-31.0); Mean Corpuscular Volume 87.9 fL (78.0-98.0); Platelet Count 125 10x3/uL (130-400); Red Blood Cell (RBC) Count 4.05 mill/uL (4.20-5.40); White Blood Cell (WBC) Count 9.57 10x3/uL (4.8-10.8)
[2025-01-22 07:44] LABS: #Basophils 0.03 10x3/uL (0.0-0.2); #Eosinophils 0.40 10x3/uL (0.0-0.7); #Monocytes 0.53 10x3/uL (0.11-0.59); #Neutrophils 7.34 10x3/uL (1.40-6.50); %Basophils 0.3 % (0.0-1.0); %Eosinophils 4.1 % (0.0-10.0); %Lymphocytes 14.3 % (21.0-51.0); %Monocytes 5.4 % (0.0-10.0); %Neutrophils 75.1 % (42.0-75.0)
[2025-01-22 15:15] VITALS: BMI 26.0
[2025-01-22] MEDS: PHOS-NAK 1 PKT PACK PO SCH (20:23)
[2025-01-23 05:56] LABS: Anion Gap 8 mmol/L (10-20); BUN (Urea Nitrogen) 18 mg/dL (9.8-20.1); Calc. Creatinine Clearance 50 mL/min (70-130); Calcium 8.6 mg/dL (7.8-10.44); Carbon Dioxide 23 mmol/L (23-31); Chloride 115 mmol/L (98-107); Glucose 103 mg/dL (83-110); Magnesium 2.1 mg/dL (1.6-2.6); Potassium 4.3 mmol/L (3.5-5.1); Sodium 142 mmol/L (136-145)
[2025-01-24 05:51] LABS: #Basophils Less than 0.03 10x3/uL (0.0-0.2); #Eosinophils 0.29 10x3/uL (0.0-0.7); #Monocytes 0.61 10x3/uL (0.11-0.59); #Neutrophils 5.42 10x3/uL (1.40-6.50); %Basophils 0.3 % (0.0-1.0); %Eosinophils 3.7 % (0.0-10.0); %Lymphocytes 18.6 % (21.0-51.0); %Monocytes 7.8 % (0.0-10.0); %Neutrophils 68.7 % (42.0-75.0); Hematocrit 32.7 % (36.0-47.0); Hemoglobin 10.4 g/dL (12.0-16.0); Mean Corpuscular Hemoglobin 28.1 pg (27.0-31.0); Mean Corpuscular Volume 88.4 fL (78.0-98.0); Platelet Count 218 10x3/uL (130-400); Red Blood Cell (RBC) Count 3.70 mill/uL (4.20-5.40); White Blood Cell (WBC) Count 7.87 10x3/uL (4.8-10.8)
[2025-01-24 06:16] LABS: Anion Gap 11 mmol/L (10-20); BUN (Urea Nitrogen) 19 mg/dL (9.8-20.1); Calc. Creatinine Clearance 55 mL/min (70-130); Calcium 8.5 mg/dL (7.8-10.44); Carbon Dioxide 21 mmol/L (23-31); Chloride 115 mmol/L (98-107); Glucose 121 mg/dL (83-110); Magnesium 2.1 mg/dL (1.6-2.6); Potassium 4.5 mmol/L (3.5-5.1); Sodium 142 mmol/L (136-145)
[2025-01-25 06:40] LABS: Anion Gap 10 mmol/L (10-20); BUN (Urea Nitrogen) 18 mg/dL (9.8-20.1); Calc. Creatinine Clearance 61 mL/min (70-130); Calcium 8.4 mg/dL (7.8-10.44); Carbon Dioxide 21 mmol/L (23-31); Chloride 114 mmol/L (98-107); Glucose 137 mg/dL (83-110); Potassium 4.4 mmol/L (3.5-5.1); Sodium 141 mmol/L (136-145)
[2025-01-28 04:57] LABS: #Basophils 0.04 10x3/uL (0.0-0.2); #Eosinophils 0.27 10x3/uL (0.0-0.7); #Monocytes 0.73 10x3/uL (0.11-0.59); #Neutrophils 3.65 10x3/uL (1.40-6.50); %Basophils 0.6 % (0.0-1.0); %Eosinophils 4.3 % (0.0-10.0); %Lymphocytes 23.9 % (21.0-51.0); %Monocytes 11.7 % (0.0-10.0); %Neutrophils 58.7 % (42.0-75.0); Hematocrit 33.4 % (36.0-47.0); Hemoglobin 10.1 g/dL (12.0-16.0); Mean Corpuscular Hemoglobin 28.6 pg (27.0-31.0); Mean Corpuscular Volume 94.6 fL (78.0-98.0); Platelet Count 229 10x3/uL (130-400); Red Blood Cell (RBC) Count 3.53 mill/uL (4.20-5.40); White Blood Cell (WBC) Count 6.23 10x3/uL (4.8-10.8)
[2025-01-28 05:12] LABS: Anion Gap 11 mmol/L (10-20); BUN (Urea Nitrogen) 18 mg/dL (9.8-20.1); Calc. Creatinine Clearance 68 mL/min (70-130); Calcium 8.9 mg/dL (7.8-10.44); Carbon Dioxide 19 mmol/L (23-31); Chloride 115 mmol/L (98-107); Glucose 111 mg/dL (83-110); Magnesium 1.9 mg/dL (1.6-2.6); Potassium 4.6 mmol/L (3.5-5.1); Sodium 140 mmol/L (136-145)
[2025-01-28] MEDS: Magnesium 2 GM/50 ML(in water) 2 GM in Premix 1 BAG IVPB SCH (09:25)
[2025-01-28] MEDS: diphenhydrAMINE 25 MG CAP PO PRN (22:18)
[2025-01-29 11:45] VITALS: TEMP 97.8
[2025-01-29 15:09] VITALS: BP 107/56
== END 2025-01-29 16:00 | DRG 871 ==
LOC: ERS 14:01 → CCU 20:08 → T4-A 01-17 21:32
PROVIDERS: ADMIT Internal Medicine; ATTEND Internal Medicine
PROC: 0T9030Z Drainage of Right Kidney with Drainage Device, Percutaneous Approach (ICD-10-PCS; principal; 2025-01-15)
PROC: 3E03329 Introduction of Other Anti-infective into Peripheral Vein, Percutaneous Approach (ICD-10-PCS; 2025-01-15)
PROC: 3E033XZ Introduction of Vasopressor into Peripheral Vein, Percutaneous Approach (ICD-10-PCS; 2025-01-15)
PROC: 4A033J1 Measurement of Arterial Pulse, Peripheral, Percutaneous Approach (ICD-10-PCS; 2025-01-15)
PROC: 30233J1 Transfusion of Nonautologous Serum Albumin into Peripheral Vein, Percutaneous Approach (ICD-10-PCS; 2025-01-21)
DX: A41.59 Other Gram-negative sepsis (principal); G93.41 Metabolic encephalopathy; R65.21 Severe sepsis with septic shock; N17.9 Acute kidney failure, unspecified; N13.6 Pyonephrosis; F03.94 Unspecified dementia, unspecified severity, with anxiety; F03.93 Unspecified dementia, unspecified severity, with mood disturbance; E87.0 Hyperosmolality and hypernatremia; Z66 Do not resuscitate; Z51.5 Encounter for palliative care; R13.10 Dysphagia, unspecified; E83.39 Other disorders of phosphorus metabolism; I10 Essential (primary) hypertension; E78.5 Hyperlipidemia, unspecified; Z96.651 Presence of right artificial knee joint; M81.0 Age-related osteoporosis without current pathological fracture; I25.119 Atherosclerotic heart disease of native coronary artery with unspecified angina pectoris; E03.9 Hypothyroidism, unspecified; E66.9 Obesity, unspecified; B96.1 Klebsiella pneumoniae [K. pneumoniae] as the cause of diseases classified elsewhere; K21.9 Gastro-esophageal reflux disease without esophagitis; Z90.710 Acquired absence of both cervix and uterus; Z98.890 Other specified postprocedural states; Z93.6 Other artificial openings of urinary tract status; Z87.891 Personal history of nicotine dependence; Z99.3 Dependence on wheelchair; Z91.81 History of falling; Z87.442 Personal history of urinary calculi; Z90.49 Acquired absence of other specified parts of digestive tract; Z95.5 Presence of coronary angioplasty implant and graft; Z98.51 Tubal ligation status; Z68.26 Body mass index [BMI] 26.0-26.9, adult; Z79.899 Other long term (current) drug therapy; Z79.82 Long term (current) use of aspirin
CPT/HCPCS: 36415; 36416; 36556; 36600; 50432; 70450; 71045; 74018; 74176; 76942; 80048; 80053; 81001; 82533; 82550; 82805; 83605; 83690; 83735; 83880; 84100; 84484; 85025; 85610; 85730; 87040; 87077; 87081; 87086; 87149; 87186; 87426; 87430; 93005; 96365; 96366; 96368; 96376; 97139; C1729; C1769; J0692; J1644; J2183; J2185; J2470; J3373; J3475; J3480; J7030; J7070; J7120; P9047; Q9967